=== PATIENT | female | born 2000 | race Caucasian/White ===

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

== ENCOUNTER 2021-03-09 22:38 | Observation (INO) | payer MEDICAID ==
[~2021-03-09] VITALS: Ht 152 cm; Wt 71.0 kg
[~2021-03-09 22:38] MED LIST: ONDA4TAB11 PO
--- NOTE | 2021-03-09 23:16 | ED GU-Female ---
General Chief Complaint: Female Reproductive Stated Complaint: APROX 16-17 W - VAGINAL BLEEDING Nursing Triage Note: vaginal bleeding x1 day. reports lower abdominal pain/pressure since 1900 today. Nursing Sepsis Screen: No Definite Risk Source: patient Exam Limitations: no limitations History of Present Illness Date Seen by Provider: March 09, 2021 Time Seen by Provider: 23:03 Initial Comments Patient is a 21-year-old female who presents to the emergency department today with a chief complaint of lower abdominal cramping and vaginal bleeding onset yesterday. Patient states the cramping started today. She is a G1, P0. First date of her last menstrual cycle was November 27 her estimated due date is September 05, 2021. Patient states that she is having lots of vaginal bleeding and cramping. She denies any burning with urination urgency or frequency. No abnormal vaginal discharge. No recent illnesses such as fever, chills, cough or congestion. Patient states that she had an ultrasound at [facility] on 02 March which showed a gestational sac but did not show evidence of a baby at that time. Patient has not taken any medications for the cramping. She states she called and spoke with a nurse through [facility] and they told her to come to the emergency department. All other review of systems reviewed and negative except as stated above. Timing/Duration: yesterday Severity/Quality: cramping Location: suprapubic Radiation: suprapubic Activities at Onset: none Prior Genitourinary Problems: none Associated Symptoms: denies symptoms Allergies and Home Medications Allergies Coded Allergies: No Known Drug Allergies (Unverified , 11/28/19) Patient Home Medication List Home Medication List Reviewed: Yes Review of Systems Review of Systems Constitutional: see HPI EENTM: no symptoms reported Respiratory: no symptoms reported Cardiovascular: no symptoms reported Gastrointestinal: abdominal pain Genitourinary: other (Vaginal bleeding) : Yes Expected Date of Delivery: Sep 05, 2021 LMP: Nov 27, 2020 Musculoskeletal: no symptoms reported Skin: no symptoms reported Psychiatric/Neurological: No Symptoms Reported All Other Systemes Reviewed Negative Unless Noted: Yes Past Fycjcfw-Aglaiq-Iofbfe Hx Patient Social History Alcohol Use: Denies Use Smoking Status: Never a Smoker 2nd Hand Smoke Exposure: No Recent Infectious Disease Expo: No Recent Hopitalizations: No Immunizations Up To Date Tetanus Booster (TDap): Unknown Seasonal Allergies Seasonal Allergies: No Past Medical History Surgeries: No Respiratory: No Cardiac: No Neurological: No : Yes Expected Date of Delivery: Sep 05, 2021 Last Menstrual Period: Nov 27, 2020 Genitourinary: No Gastrointestinal: No Musculoskeletal: No Endocrine: No HEENT: No Cancer: No Psychosocial: No Integumentary: No Blood Disorders: No Physical Exam Vital Signs Vital Signs - First Documented 03/09/21 22:52 Temp 36.0 Pulse 77 Resp 18 B/P (MAP) 108/67 (81) Pulse Ox 98 O2 Delivery Room Air Capillary Refill : Less Than 3 Seconds Height, Weight, BMI Height: '" Weight: lbs. oz. kg; 30.00 BMI Method: General Appearance: WD/WN, no apparent distress HEENT: PERRL/EOMI Cardiovascular: regular rate, rhythm Respiratory: lungs clear, normal breath sounds, no respiratory distress, no accessory muscle use Gastrointestinal: normal bowel sounds, non tender, soft Pelvic: vaginal bleeding (Copious amounts of vaginal bleeding. It feels like the cervix is almost at the introitus. When I go to palpate in the vaginal vault it feels like I am inside the cervix. Patient cannot tolerate the exam, she has exquisite pain with any type of manual examination.) Extremities: normal range of motion, non-tender, normal inspection Neurologic/Psychiatric: no motor/sensory deficits, alert, normal mood/affect, oriented x 3 Skin: normal color, warm/dry Progress/Results/Core Measures Suspected Sepsis Recent Fever Within 48 Hours: No Infection Criteria Present: None New/Unexplained Altered Menta: No Sepsis Screen: No Definite Risk SIRS Temperature: Pulse: 77 Respiratory Rate: 18 Laboratory Tests 03/09/21 23:20: White Blood Count 9.1 Blood Pressure 108 /67 Mean: 81 Laboratory Tests 03/09/21 23:20: Platelet Count 186 Results/Orders Lab Results Laboratory Tests Test 03/09/21 23:00 03/09/21 23:20 Range/Units Urine Color ORANGE Urine Clarity CLEAR Urine pH 5.5 5-9 Urine Specific Coats >=1.030 1.016-1.022 Urine Protein 1+ H NEGATIVE Urine Glucose (UA) NEGATIVE NEGATIVE Urine Ketones NEGATIVE NEGATIVE Urine Nitrite NEGATIVE NEGATIVE Urine Bilirubin NEGATIVE NEGATIVE Urine Urobilinogen 0.2 < = 1.0 MG/DL Urine Leukocyte Esterase NEGATIVE NEGATIVE Urine RBC (Auto) 3+ H NEGATIVE Urine RBC >100 H /HPF Urine WBC NONE /HPF Urine Squamous Epithelial Cells 2-5 /HPF Urine Crystals NONE /LPF Urine Bacteria NEGATIVE /HPF Urine Casts NONE /LPF Urine Mucus SMALL H /LPF Urine Culture Indicated NO White Blood Count 9.1 4.3-11.0 10^3/uL Red Blood Count 4.22 3.80-5.11 10^6/uL Hemoglobin 12.3 11.5-16.0 g/dL Hematocrit 39 35-52 % Mean Corpuscular Volume 93 80-99 fL Mean Corpuscular Hemoglobin 29 25-34 pg Mean Corpuscular Hemoglobin Concent 32 32-36 g/dL Red Cell Distribution Width 14.2 10.0-14.5 % Platelet Count 186 130-400 10^3/uL Mean Platelet Volume 11.6 9.0-12.2 fL Immature Granulocyte % (Auto) 0 % Neutrophils (%) (Auto) 64 42-75 % Lymphocytes (%) (Auto) 28 12-44 % Monocytes (%) (Auto) 6 0-12 % Eosinophils (%) (Auto) 2 0-10 % Basophils (%) (Auto) 0 0-10 % Neutrophils # (Auto) 5.8 1.8-7.8 10^3/uL Lymphocytes # (Auto) 2.6 1.0-4.0 10^3/uL Monocytes # (Auto) 0.5 0.0-1.0 10^3/uL Eosinophils # (Auto) 0.2 0.0-0.3 10^3/uL Basophils # (Auto) 0.0 0.0-0.1 10^3/uL Immature Granulocyte # (Auto) 0.0 0.0-0.1 10^3/uL Human Chorionic Gonadotropin, Quant 3013 H <5 MIU/ML My Orders Orders - NAEEM ROLON MD Cbc With Automated Diff (03/09/21 23:16) Abo Rh Type (03/09/21 23:16) Hcg,Quantitative (03/09/21 23:16) Ua Culture If Indicated (03/09/21 23:16) Us Ob Transvaginal [id number] (03/10/21 00:30) Ed Iv/Invasive Line Start (03/10/21 01:02) Fentanyl Inj (Sublimaze Injection) (03/10/21 01:15) Medications Given in ED Current Medications Medications Dose Ordered Sig/Cosme Route Start Time Stop Time Status Last Admin Dose Admin Fentanyl Citrate 50 mcg ONCE ONCE IVP 03/10/21 01:15 03/10/21 01:16 DC 03/10/21 01:11 50 MCG Vital Signs/I&O 03/09/21 22:52 Temp 36.0 Pulse 77 Resp 18 B/P (MAP) 108/67 (81) Pulse Ox 98 O2 Delivery Room Air Capillary Refill : Less Than 3 Seconds Blood Pressure Mean: 81 Progress Note : Time: 01:45 Progress Note Case discussed with Dr. Rodas. Recommends calling Dr. Cardenas, DATA CONVERSION OPERATOR on-call secondary to patient likely needing a D&C. Patient's ultrasound shows evidence of gestational sac involution down low in the cervix with copious amounts of bleeding. No evidence of pole. Patient's vital signs of been stable, hemoglobin is normal. Blood type is O+. [address] Cardenas who will come and evaluate the patient here in the ED 0307 Dr Cardenas in the ER to evaluate patient. removed products of conception. will admit for monitoring and repeat hemoglobin in a couple of hours. Departure Communication (Admissions) Time/Spoke to Admitting Phy: 02:[address] Cardenas Impression Primary Impression: Complete miscarriage Disposition: ADMITTED INPATIENT Condition: Stable Admissions Decision to Admit Reason: Admit from ER (General) Decision to Admit/Date: March 10, 2021 Time/Decision to Admit Time: 03:04 Departure-Patient Inst. Referrals: [facility] (PCP/Family) Primary Care Physician NAEEM ROLON MD March 09, 2021 23:16
[2021-03-09 23:35] LABS: BASOPHILS % (AUTO) 0 % (0-10); EOSINOPHILS # (AUTO) 0.2 10^3/uL (0.0-0.3); EOSINOPHILS % (AUTO) 2 % (0-10); HEMATOCRIT 39 % (35-52); HEMOGLOBIN 12.3 g/dL (11.5-16.0); LYMPHOCYTES # (AUTO) 2.6 10^3/uL (1.0-4.0); LYMPHOCYTES % (AUTO) 28 % (12-44); MEAN CORPUSCULAR HEMOGLOBIN 29 pg (25-34); MEAN CORPUSCULAR HGB CONC 32 g/dL (32-36); MEAN CORPUSCULAR VOLUME 93 fL (80-99); MEAN PLATELET VOLUME 11.6 fL (9.0-12.2); MONOCYTES # (AUTO) 0.5 10^3/uL (0.0-1.0); MONOCYTES % (AUTO) 6 % (0-12); NEUTROPHILS # (AUTO) 5.8 10^3/uL (1.8-7.8); NEUTROPHILS % (AUTO) 64 % (42-75); PLATELET COUNT 186 10^3/uL (130-400); WHITE BLOOD COUNT 9.1 10^3/uL (4.3-11.0)
[2021-03-09 23:37] LABS: BILIRUBIN,URINE NEGATIVE (NEGATIVE); CLARITY,URINE CLEAR; COLOR,URINE ORANGE; GLUCOSE, URINE (UA) NEGATIVE (NEGATIVE); KETONES,URINE NEGATIVE (NEGATIVE); LEUKOCYTE ESTERASE ,URINE NEGATIVE (NEGATIVE); NITRITE,URINE NEGATIVE (NEGATIVE); PH,URINE 5.5 (5-9); PROTEIN,URINE 1+ (NEGATIVE)
[2021-03-10 00:02] LABS: BACTERIA,URINE NEGATIVE /HPF; RBC,URINE >100 /HPF
[2021-03-10] MEDS ORDERED: fentaNYL INJ 100 MCG/2 ML AMP IVP ONE (01:15)
--- NOTE | 2021-03-10 03:18 | Consultation ---
History of Present Illness History of Present Illness Patient Consulted On(rod/time) 03/10/21 03:13 Date Seen by Provider: March 10, 2021 Time Seen by Provider: 02:45 Reason for Visit: Vaginal bleeding History of Present Illness This is a 21-year-old 1 para 0 female with last menstrual period approximately 14 weeks ago who presented to women services with complaint of vaginal bleeding. She states she began bleeding yesterday and began having heavier bleeding about 7 PM. And began having blood clots. She presented to the emergency room due to the excessive bleeding. The patient states that on March 02 she had an ultrasound at [facility] that showed "no baby inside". However she did not recall what the plan was for follow-up. Dr. Gusman examined the patient and one is unable to do a complete pelvic exam due to patient discomfort and anxiety. I was asked to come evaluate for a dilation and curettage. Her hCG level is 3300, and hemoglobin is 12. Her vital signs have been stable. An ultrasound was done revealing an empty gestational sac. On my review of the ultrasound there is a large amount of tissue in the vagina and no tissue noted. It does appear that miscarriage is noted on the ultrasound with tissues extending through the cervical os. The adnexa are not visualized based on this ultrasound. The patient states that she has not been sitting up or has not been standing recently. She is unsure if she has had dizziness. She states that the pain has been better recently. But she still reports cramping. Dr. Gusman states she gave her fentanyl IV for assistance in pain management. Allergies and Home Medications Allergies Coded Allergies: No Known Drug Allergies (Unverified , 11/28/19) Patient Home Medication List Home Medication List Reviewed: Yes Past Zdfovpb-Cpshgr-Vfsvkv Hx Patient Social History Alcohol Use: Denies Use Smoking Status: Never a Smoker 2nd Hand Smoke Exposure: No Recent Infectious Disease Expo: No Recent Hopitalizations: No Immunizations Up To Date Tetanus Booster (TDap): Unknown Seasonal Allergies Seasonal Allergies: No Past Medical History Surgeries: No Respiratory: No Cardiac: No Neurological: No : Yes Expected Date of Delivery: Sep 05, 2021 Last Menstrual Period: Nov 27, 2020 Genitourinary: No Gastrointestinal: No Musculoskeletal: No Endocrine: No HEENT: No Cancer: No Psychosocial: No Integumentary: No Blood Disorders: No Review of Systems-General Constitutional: no symptoms reported Respiratory: no symptoms reported Cardiovascular: no symptoms reported Genitourinary: pain (pain is central and low), other (bleeding, no tissue passed) Physical Exam-General Problems Physical Exam Vital Signs Vital Signs - First Documented 03/09/21 22:52 Temp 36.0 Pulse 77 Resp 18 B/P (MAP) 108/67 (81) Pulse Ox 98 O2 Delivery Room Air Capillary Refill : Less Than 3 Seconds General Appearance: moderate distress Genital/Rectal: other (There is blood on the perineum and running down the legs. I did a digital exam and there is a large amount of blood clot and tissue noted in the vaginal vault. The patient was not tolerating exam and was crawling up the bed. I was able to however get her to relax her abdominal wall and her levator muscles, and was able to insert a speculum. At that point I could see a gestational sac with a large amount of tissue coming from the cervix and mainly sitting in the vaginal vault. At that point I could not visualize the cervix. I was able to tease the tissue out of the vagina and then noted that the cervix was just slightly open. And there was no further bleeding or no tissue coming from the cervical os.) Assessment/Plan Assessment/Plan Admission Diagnosis/Plan 1. Completed miscarriage 2. Vaginal bleeding Plan: We will admit for observation due to continued discomfort. We will repeat the hemoglobin in the morning. She does appear stable though vital signs have not been repeated yet. We will determine the need for further surgical treatment. Though it is likely that this will not be needed. We will repeat the hemoglobin to determine if transfusion is necessary. Admission Status: Observation GOPI ORTIZ DO March 10, 2021 03:18
[2021-03-10] MEDS ORDERED: KETOROLAC 30 MG/ML VIAL IVP ONE (03:30)
[2021-03-10] MEDS ORDERED: ONDANSETRON 4 MG/2 ML (SDV) Z0FRAN IVP ONE (03:30)
[2021-03-10] MEDS ORDERED: fentaNYL INJ 100 MCG/2 ML AMP IVP PRN (03:30)
[2021-03-10] MEDS ORDERED: ONDANSETRON 4 MG/2 ML (SDV) Z0FRAN IVP PRN (03:30)
[2021-03-10] MEDS ORDERED: ACETAMINOPHEN 500 MG TAB (TYLENOL) PO PRN (03:30)
[2021-03-10] MEDS ORDERED: KETOROLAC 30 MG/ML VIAL IVP PRN (03:30)
[2021-03-10 03:45] VITALS: BP 106/54
[2021-03-10 06:16] LABS: HEMATOCRIT 35 % (35-52); HEMOGLOBIN 10.9 g/dL (11.5-16.0); MEAN CORPUSCULAR HEMOGLOBIN 29 pg (25-34); MEAN CORPUSCULAR HGB CONC 32 g/dL (32-36); MEAN CORPUSCULAR VOLUME 93 fL (80-99); PLATELET COUNT 162 10^3/uL (130-400); WHITE BLOOD COUNT 10.2 10^3/uL (4.3-11.0)
--- NOTE | 2021-03-10 06:46 | Diagnostic Imaging Report ---
INDICATION: Vaginal bleeding. Quantitative hCG greater than 2500. The gestational age based on the LMP would be 14 weeks 5 days. The patient reports having outside pelvic ultrasound on March 02 that reported no pole though gestational sac was demonstrated. Outside films not available for review. FINDINGS: Study is limited due to the heavy vaginal bleeding and pelvic pain. Uterus measures 10 x 4.3 x 5.6 cm. There is considerable thickening of the endometrium with some fluid present. There is no evidence of an intrauterine . No findings to indicate a gestational sac. The adnexa was not well evaluated due to limitations of the exam. No obvious free fluid demonstrated. IMPRESSION: 1. Very Limited exam due to pelvic pain. There is no evidence of intrauterine though there is considerable endometrial hypertrophy. 2. With patient's symptoms and quantitative hCG, ectopic would be the primary concern. Further clinical follow-up is needed. These findings are concordant with the preliminary report. Dictated by: Dictated on workstation # [id number]
[2021-03-10 07:30] VITALS: BP 103/51
[2021-03-10] MEDS ORDERED: ACET-93 PO (08:54)
[2021-03-10] MEDS ORDERED: IBUP-1773 PO (08:54)
--- NOTE | 2021-03-10 08:56 | Discharge Inst-Women's Service ---
Discharge Inst-Women's Serv Depart Medication/Instructions New, Converted or Re-Newed RX: Transmitted to Pharmacy Instructions expect light vaginal bleeding, cramping for a few more days Schedule follow up in [address] Rodas or Dr. Ortiz Would recommend an additional HCG drawn in 2 weeks Final Diagnosis complete miscarriage vaginal hemorrhage Problems Reviewed?: Yes Consults/Follow Up Additional Follow Up: Yes (1-[address] ortiz/Clark) Activity Activity: Activity as Tolerated Driving Instructions: No Driving for 24 Hours NO SMOKING: NO SMOKING Nothing Inside Vagina: No Douching, No [place] (2 weeks), No Tampons Diet Discharge Diet: No Restrictions Symptoms to Report to : Bleeding Excessive (> 1 pad per hour), Fever Over 101 Degrees F, Vaginal Bleeding Increase, Cramps in Feet or Legs, Vaginal Discharge Foul For Any Problems or Questions: Contact Your Physician GOPI ORTIZ DO March 10, 2021 08:56
[2021-03-10 10:30] VITALS: BP 103/51
--- NOTE | 2021-03-29 10:25 | Physician Query-Final Dx ---
KHANG CASAS 03/29/21 1025: Final Diagnosis Give Final Diagnosis Please give Final Diagnosis GOPI ORTIZ DO 04/01/21 1742: Final Diagnosis Give Final Diagnosis complete miscarriage KHANG CASAS Mar 29, 2021 10:25 GOPI ORTIZ DO Apr 01, 2021 17:42
== END 2021-03-10 08:52 | disposition home or self-care (01) ==
LOC: EDUNIT# 22:38 → ER 22:40 → WS 22:41 → UNDOADMIN 03-10 03:21 → UNDODISIN 03-10 11:00
PROVIDERS: ADMIT Obstetrics & Gynecology; ATTEND Obstetrics & Gynecology
DX: O03.9 Complete or unspecified spontaneous abortion without complication (principal)
CPT/HCPCS: 76817; 81000; 84702; 85025; 85027; 86900; 86901; 88305; 88342; 96374; 96375; 99284; G0378; 36415

== ENCOUNTER → 2021-03-23 | Outpatient (CLI) | payer MEDICAID ==
[~2021-03-23] MED LIST changes: +ACET-93 PO; +IBUP-1773 PO
== END ==
LOC: LAB 14:58
PROVIDERS: ATTEND Obstetrics & Gynecology
DX: O03.9 Complete or unspecified spontaneous abortion without complication (principal)
CPT/HCPCS: 36415; 84702

== ENCOUNTER 2021-11-05 02:55 | Emergency (ER) | payer MEDICAID ==
[2021-11-05] MEDS ORDERED: OSLT75C PO (04:53)
--- NOTE | 2021-11-05 04:53 | ED Cough/URI ---
General Chief Complaint: COVID19 Suspect/Confirmed Stated Complaint: FEVER,RUNNY NOSE,ACHES ALL OVER,4 MONTHS PREG Source: patient (VERY VAGUE AND DIFFICULT HISTORIAN) History of Present Illness Date Seen by Provider: Nov 05, 2021 Time Seen by Provider: 03:53 Initial Comments PT ARRIVES VIA POV FROM HOME STATES SHE STARTED GETTING SICK AROUND 1700 TONIGHT C/O RUNNY NOSE, CLEAR DRAINAGE C/O SLIGHT COUGH C/O EAR ACHE C/O BODY ACHES C/O FEVER OF 99 NO SHORTNESS OF BREATH NO LOSS OF TASTE OR SMELL NO GI SYMPTOMS NO HEADACHE IS NOT ILL., NO ONE ELSE LIVES IN THE HOME PT HAS NOT HAD COVID-19 OR FLU VACCINES. STATES SHE TOOK MOTRIN TONIGHT--HAS NOT TAKEN ANY TYLENOL PT STATES SHE IS 4 MONTHS WITH LMP OF 08/04/21 AND EDC 04/22/[address] FITCH FOR OB CARE. HAD ROUTINE VISIT A WEEK OR TWO AGO, NEXT VISIT IS IN NOVEMBER PT IS AB 0 NO CHRONIC ILLNESSES PCP; [facility] AMORTIZATION SCHEDULE CLERK: DR. FITCH Allergies and Home Medications Allergies Coded Allergies: No Known Drug Allergies (Unverified , 11/28/19) Patient Home Medication List Home Medication List Reviewed: Yes Acetaminophen (Acetaminophen) 500 Mg Tablet, 1,000 MG PO Q8H PRN for PAIN-MILD (1-4) Prescribed by: GOPI ORTIZ on 03/10/21 0854 Ibuprofen (Ibuprofen) 600 Mg Tablet, 600 MG PO Q6H Prescribed by: GOPI ORTIZ on 03/10/21 0854 Oseltamivir Phosphate (Tamiflu) 75 Mg Cap, 75 MG PO BID Prescribed by: GUY MARIE on 11/05/21 0453 Review of Systems Review of Systems Constitutional: see HPI, fever EENTM: see HPI, nose congestion Respiratory: see HPI, cough; No short of breath Cardiovascular: no symptoms reported Gastrointestinal: no symptoms reported Genitourinary: no symptoms reported : Yes Musculoskeletal: see HPI (BODY ACHES) Skin: no symptoms reported Psychiatric/Neurological: No Symptoms Reported Hematologic/Lymphatic: No Symptoms Reported Immunological/Allergic: no symptoms reported Past Pojphmf-Dxitmh-Uskgoe Hx Patient Social History Tobacco Use?: No Substance use?: No Alcohol Use?: No Immunizations Up To Date Tetanus Booster (TDap): Unknown Seasonal Allergies Seasonal Allergies: No Past Medical History Surgeries: No Respiratory: No Cardiac: No Neurological: No : Yes Expected Date of Delivery: Apr 22, 2022 Reproductive Disorders: No Genitourinary: No Gastrointestinal: No Musculoskeletal: No Endocrine: No HEENT: No Cancer: No Psychosocial: No Integumentary: No Blood Disorders: No Physical Exam Vital Signs - First Documented 11/05/21 03:50 Temp 37.3 Pulse 111 Resp 18 B/P (MAP) 129/65 (86) Pulse Ox 98 O2 Delivery Room Air Capillary Refill : Height: '" Weight: lbs. oz. kg; 30.73 BMI Method: General Appearance: WD/WN, no apparent distress, other (DOES NOT APPEAR ILL OR TO BE IN ANY DISCOMFORT OR DISTRESS) HEENT: PERRL/EOMI, normal ENT inspection, TMs normal, pharynx normal Neck: normal inspection Respiratory: normal breath sounds, no respiratory distress, no accessory muscle use Cardiovascular: normal peripheral pulses, regular rate, rhythm, no edema, no JVD, no murmur Gastrointestinal: non tender, soft Extremities: normal inspection, no pedal edema, no calf tenderness, normal capillary refill Neurologic/Psychiatric: no motor/sensory deficits, alert, normal mood/affect Skin: normal color, warm/dry Progress/Results/Core Measures Suspected Sepsis SIRS Temperature: Pulse: Respiratory Rate: Blood Pressure / Mean: Results/Orders Lab Results Laboratory Tests Test 11/05/21 03:55 Range/Units Influenza Type A (RT-PCR) Detected H Not Detecte Influenza Type B (RT-PCR) Not Detected Not Detecte SARS-CoV-2 RNA (RT-PCR) Not Detected Not Detecte Group A Streptococcus Screen NEGATIVE NEGATIVE My Orders Orders - GUY MARIE DO Covid 19 Inhouse Test (11/05/21 03:54) Influenza A And B By Pcr (11/05/21 03:54) Isolation Central Supply Req (11/05/21 03:54) Heart Tones (11/05/21 03:54) Rapid Strep A Screen (11/05/21 03:56) Oseltamivir 75 Mg Capsule (Tamiflu 75 (11/05/21 05:00) Vital Signs/I&O 11/05/21 11/05/21 03:50 04:59 Temp 37.3 37.3 Pulse 111 123 Resp 18 16 B/P (MAP) 129/65 (86) 115/60 Pulse Ox 98 99 O2 Delivery Room Air Room Air Capillary Refill : Progress Note : Progress Note FHR 164 PPE WORN AT ALL TIMES COVID AND FLU TESTING DONE NO SYMPTOMS OF ANY KIND DURING ER STAY NO COUGH NO DYSPNEA NO HYPOXIA NO FEVER ANTICIPATED COURSE DISCUSSED, ALONG WITH STRICT RETURN PRECAUTIONS ALSO ADVISED THAT SHE CONTACT HER OB AND INFORM HIM OF TODAY'S TEST RESULTS Departure Impression Primary Impression: Influenza A Additional Impression: SECOND TREMESTER Disposition: HOME, SELF-CARE Condition: Stable Departure-Patient Inst. Decision time for Depature: 04:50 Referrals: [facility] (PCP/Family) Primary Care Physician Patient Instructions: Flu, Adult (DC), and the Flu Add. Discharge Instructions: LOTS OF CLEAR LIQUIDS TYLENOL NEEDED FOR PAIN OR FEVER OVER 101 DO NOT TAKE MOTRIN / IBUPROFEN / ADVIL OR ALEVE / NAPROXEN WHILE QUARANTINE FOR THE NEXT 7 DAYS FOLLOW UP WITH YOUR DR NEEDED, RETURN TO ER IF WORSE All discharge instructions reviewed with patient and/or family. Voiced understanding. Scripts Oseltamivir Phosphate (Tamiflu) 75 Mg Cap 75 MG PO BID for 5 Days, #10 CAP Prov: GUY MARIE DO 11/05/21 GUY MARIE DO Nov 05, 2021 04:53
[2021-11-05 04:59] VITALS: BP 115/60
[2021-11-05] MEDS ORDERED: OSELTAMIVIR 75 MG (TAMIFLU) CAPSULE PO ONE (05:00)
== END 2021-11-05 05:00 | disposition home or self-care (01) ==
LOC: EDUNIT# 02:55 → ER 02:59
DX: O98.512 Other viral diseases complicating pregnancy, second trimester (principal); J10.1 Influenza due to other identified influenza virus with other respiratory manifestations; Z20.822 Contact with and (suspected) exposure to COVID-19; Z3A.00 Weeks of gestation of pregnancy not specified
CPT/HCPCS: 87430; 87636

== ENCOUNTER → 2021-12-06 | Outpatient (CLI) | payer MEDICAID ==
[~2021-12-06] MED LIST changes: +OSLT75C PO
--- NOTE | 2021-12-06 16:53 | Diagnostic Imaging Report ---
EXAM: OB ULTRASOUND COMPLETE DATE: December 06, 2021. COMPARISON: March 10, 2021. INDICATION: 21-year-old female, supervision of otherwise normal . FINDINGS: Multiple grayscale sonographic images were obtained of the gravid uterus. OVERVIEW: Within the uterus, there is a single living gestation in breech position. There is positive movement and heart motion. heart rate was identified at 150 beats per minute. The amnionic fluid volume is subjectively normal. The placenta is anterior and without previa. The cervical length is 3.1 cm. growth parameters are summarized in detail on the accompanying separate chart. The approximate mean gestational age by today's ultrasound measurements is 20 weeks 1 days +/- 1 week variability. Estimated weight based on today's measurements is 342 g. anatomic survey: There is no ventriculomegaly (the lateral ventricle measures 6 mm) the cerebellum, cavum septum pellucidum, falx, and cisterna magna are identified. Longitudinal and transverse images of the spine appear unremarkable. There is visualization of the stomach, kidneys and urinary bladder. The cardiac apex and stomach are on the same side of midline. There is a limited four-chamber view of the heart. There is a three-vessel cord with an unremarkable insertion into the abdominal wall. 4 extremities are seen. The upper lip is not well seen. IMPRESSION: 1. Single living intrauterine with approximate mean gestational age of 20 weeks 1 days +/- 1 week. 2. No demonstrated abnormality. There is a limited four-chamber view of the heart. Biometrical measurements are as follows: Biparietal 4.64 cm, age 20 weeks 1 days. Head circumference 16.98 cm, age 19 weeks 5 days. Abdominal circumference 15.84 cm, age 21 weeks 0 days. Femur length 3.09 cm, age 19 weeks 5 days. Sonographic estimate age: 20 weeks 1 days. Sonographic estimated date of delivery: 04/24/2022. Estimated Weight: 342 gm (+/- 50 gm). LMP percentile: 35%. heart rate: 150 beats per minute. number: 1 of 1. Dictated by: Dictated on workstation # [id number]
== END ==
LOC: RAD 12:00
PROVIDERS: ATTEND Nurse Practitioner Women's Health
DX: Z34.02 Encounter for supervision of normal first pregnancy, second trimester (principal)
CPT/HCPCS: 76805

== ENCOUNTER 2021-12-20 13:06 | Outpatient (CLI) | payer MEDICAID ==
[~2021-12-20] VITALS: Ht 152.4 cm; Wt 70.4 kg
[2021-12-20 13:00] VITALS: BP 129/72
[2021-12-20 13:37] LABS: BILIRUBIN,URINE NEGATIVE (NEGATIVE); CLARITY,URINE CLEAR; COLOR,URINE YELLOW; GLUCOSE, URINE (UA) NEGATIVE (NEGATIVE); KETONES,URINE NEGATIVE (NEGATIVE); LEUKOCYTE ESTERASE ,URINE NEGATIVE (NEGATIVE); NITRITE,URINE NEGATIVE (NEGATIVE); PROTEIN,URINE NEGATIVE (NEGATIVE)
[2021-12-20 13:45] LABS: BACTERIA,URINE MODERATE /HPF; RBC,URINE RARE /HPF; WBC,URINE 0-2 /HPF
[2021-12-20] MEDS ORDERED: PREN1TAB79 PO (14:07)
--- NOTE | 2021-12-21 08:50 | Physician Query-Final Dx ---
KAIDEN,12/21/21 0849: Clinic Account Progress/Dx Physician Query: Please give diagnosis Please include # weeks gestation Date of Service Dec 20, 2021 at 13:06 ANAM FITCH DO 12/21/21 1050: Clinic Account Progress/Dx DIAGNOSIS: Diagnosis 22 week IUP Lower abdominal discomfort KAIDEN,OctDec 21, 2021 08:49 ANAM FITCH DO Dec 21, 2021 10:50
== END 2021-12-20 14:26 | disposition home or self-care (01) ==
LOC: WSo 13:06 → LDRP 13:06 → WSo 14:26
PROVIDERS: ATTEND Obstetrics & Gynecology
DX: O26.892 Other specified pregnancy related conditions, second trimester (principal); R10.9 Unspecified abdominal pain; Z3A.22 22 weeks gestation of pregnancy
CPT/HCPCS: 81000; 87088; G0463; 99213

== ENCOUNTER → 2022-01-25 | Outpatient (CLI) | payer MEDICAID ==
[~2022-01-25] MED LIST changes: +PREN1TAB79 PO
--- NOTE | 2022-01-25 11:04 | Diagnostic Imaging Report ---
INDICATION: Supervision of normal . Evaluate growth. TECHNIQUE: Multiple real-time grayscale images were obtained over the gravid uterus. COMPARISON: 12/06/2021. FINDINGS: A single live intrauterine gestation is visualized in cephalic presentation. heart tones measure 134 BPM. PARTHA measures 14.6 cm. The placenta is anterior/fundal and has a normal appearance. No evidence of previa. The cervical length measures 3.7 cm. The profile is visualized and has a normal appearance. Four-chamber heart is identified without abnormality. Biometrical measurements are as follows: Biparietal 7.03 cm, age 28 weeks 2 days. Head circumference 25.67 cm, age 28 weeks 0 days. Abdominal circumference 24.50 cm, age 28 weeks 6 days. Femur length 5.41 cm, age 28 weeks 5 days. Sonographic estimate age: 28 weeks 4 days. Sonographic estimated date of delivery: 04/15/2022. Estimated Weight: 1252 gm (+/- 183 gm). LMP percentile: 78%. heart rate: 134 beats per minute. number: 1 of 1. The bilateral adnexa are unremarkable. IMPRESSION: 1. Single live intrauterine gestation measuring 28 weeks 4 days with an estimated due date of 04/15/2022. These are within range with the clinical dates. Recommend continued surveillance as indicated. 2. There is improved visualization of the profile and four-chamber heart on today's exam. No anatomic abnormalities are identified. Dictated by: Dictated on workstation # [id number]
== END ==
LOC: RAD 10:00
PROVIDERS: ATTEND Obstetrics & Gynecology
DX: Z36.9 Encounter for antenatal screening, unspecified (principal); Z3A.28 28 weeks gestation of pregnancy
CPT/HCPCS: 76805

== ENCOUNTER 2022-03-05 22:25 | Outpatient (CLI) | payer MEDICAID ==
[~2022-03-05] VITALS: Ht 152.4 cm; Wt 80.0 kg
[2022-03-05 22:52] VITALS: BP 142/69
[2022-03-05 22:54] VITALS: BP 142/69
[2022-03-05 22:57] LABS: BILIRUBIN,URINE NEGATIVE (NEGATIVE); CLARITY,URINE CLEAR; COLOR,URINE YELLOW; GLUCOSE, URINE (UA) NEGATIVE (NEGATIVE); KETONES,URINE NEGATIVE (NEGATIVE); LEUKOCYTE ESTERASE ,URINE NEGATIVE (NEGATIVE); NITRITE,URINE NEGATIVE (NEGATIVE); PH,URINE 7.5 (5-9); PROTEIN,URINE NEGATIVE (NEGATIVE)
[2022-03-05 23:06] LABS: BACTERIA,URINE MODERATE /HPF; RBC,URINE 0-2 /HPF; WBC,URINE 0-2 /HPF
[2022-03-05 23:07] VITALS: BP 125/68
[2022-03-05 23:15] VITALS: BP 125/68
[2022-03-05 23:30] VITALS: BP 125/68
--- NOTE | 2022-03-07 08:17 | Physician Query-Final Dx ---
KAIDEN03/07/22 0817: Clinic Account Progress/Dx Physician Query: Please give diagnosis Please include # weeks gestation Date of Service March 05, 2022 at 22:25 ANAM FITCH DO 03/07/22 0903: Clinic Account Progress/Dx DIAGNOSIS: Diagnosis 33 week IUP Pelvic pains KAIDEN,OctMarch 07, 2022 08:17 ANAM IFTCH DO March 07, 2022 09:03
== END 2022-03-05 23:30 | disposition home or self-care (01) ==
LOC: LDRP 22:25 → WSo 22:25
PROVIDERS: ATTEND Obstetrics & Gynecology
DX: O26.893 Other specified pregnancy related conditions, third trimester (principal); R10.2 Pelvic and perineal pain; Z3A.33 33 weeks gestation of pregnancy
CPT/HCPCS: 81000; 87088; 99213

== ENCOUNTER → 2022-04-05 | Outpatient (CLI) | payer MEDICAID ==
[~2022-04-05] MED LIST changes: +ACHD5005 PO; +BENZ78AE5 TP; +DIBU30OI TOP; +DOCU100C37 PO; +FERR325T24 PO; +IBUP-844 PO; +PNV1TABL67 PO
== END ==
LOC: LABNPT 11:25
PROVIDERS: ATTEND Nurse Practitioner Women's Health
DX: O14.03 Mild to moderate pre-eclampsia, third trimester (principal); Z3A.00 Weeks of gestation of pregnancy not specified
CPT/HCPCS: 82570; 84156

== ENCOUNTER 2022-04-17 03:26 | Inpatient (IN) | payer MEDICAID ==
[2022-04-17] VITALS (31 sets, daily range): BP systolic 71–161; BP diastolic 32–95
[~2022-04-17] VITALS: Ht 152 cm; Wt 86.0 kg
[~2022-04-17 03:26] MED LIST changes: -ACHD5005 PO; -BENZ78AE5 TP; -DIBU30OI TOP; -DOCU100C37 PO; -FERR325T24 PO; -IBUP-844 PO; -PNV1TABL67 PO
[2022-04-17] MEDS ORDERED: D5 LR IV SOLUTION 1,000 ML IV ONE (04:06)
[2022-04-17] MEDS ORDERED: HYDROmorphone 2 MG/ML VIAL (DILAUDID) ONE (04:13)
[2022-04-17 04:14] LABS: BASOPHILS % (AUTO) 0 % (0-10); EOSINOPHILS % (AUTO) 0 % (0-10); HEMATOCRIT 34 % (35-52); LYMPHOCYTES # (AUTO) 2.1 10^3/uL (1.0-4.0); LYMPHOCYTES % (AUTO) 26 % (12-44); MEAN CORPUSCULAR HEMOGLOBIN 29 pg (25-34); MEAN CORPUSCULAR HGB CONC 33 g/dL (32-36); MEAN CORPUSCULAR VOLUME 88 fL (80-99); MEAN PLATELET VOLUME 12.6 fL (9.0-12.2); MONOCYTES # (AUTO) 0.8 10^3/uL (0.0-1.0); MONOCYTES % (AUTO) 10 % (0-12); NEUTROPHILS # (AUTO) 5.1 10^3/uL (1.8-7.8); NEUTROPHILS % (AUTO) 62 % (42-75); PLATELET COUNT 201 10^3/uL (130-400); WHITE BLOOD COUNT 8.1 10^3/uL (4.3-11.0)
[2022-04-17] MEDS ORDERED: HYDROmorphone 2 MG/ML VIAL (DILAUDID) IV ONE ×2 (04:15→07:30)
[2022-04-17] MEDS ORDERED: D5 LR IV SOLUTION 1,000 ML IV SCH ×2 (04:15→10:45)
[2022-04-17] MEDS ORDERED: LIDOCAINE/EPI 2% 1:200,00 (XYLOCAINE) 10 ML VIAL INJ PRN (04:15)
[2022-04-17] MEDS ORDERED: MINERAL OIL 30 ML TOP PRN (04:15)
[2022-04-17] MEDS ORDERED: OXYTOCIN PRE-MIX DRIP 500 ML IV ONE (06:10)
[2022-04-17] MEDS ORDERED: ONDANSETRON 4 MG/2 ML (SDV) Z0FRAN IVP ONE (07:30)
[2022-04-17] MEDS: CATHETER FLUSH 10 ML SYR IV SCH ×4 (08:32→23:57)
[2022-04-17] MEDS ORDERED: BUPIVACAINE 0.25% 30 ML (SENSORCAINE) VIAL INJ ONE (09:45)
[2022-04-17] MEDS: OXYTOCIN PRE-MIX DRIP 500 ML IV SCH ×4 (10:30→22:44)
[2022-04-17] MEDS ORDERED: WITCH HAZEL(TUCKS) 40 EA JAR TOP PRN (10:45)
[2022-04-17] MEDS ORDERED: DIBUCAINE 1% OINTMENT 30 GM TUBE TOP PRN (10:45)
[2022-04-17] MEDS ORDERED: TETANUS,DIPTH,PERTUSS P/F (BOOSTRIX) 0.5 ML VIAL IM ONE (10:45)
[2022-04-17] MEDS ORDERED: MEASLES,MUMPS,RUBELLA 1 EA INJ SQ ONE (10:45)
[2022-04-17] MEDS ORDERED: NALOXONE 0.4 MG/ML 1 ML (NARCAN) VIAL IV PRN (10:45)
[2022-04-17] MEDS ORDERED: BENZOCAINE/MENTHOL (DERMOPLAST) 56 ML CAN TP PRN (10:45)
--- NOTE | 2022-04-17 10:45 | OB Labor & Delivery Record ---
L&D History Date of Service Date of Service: Apr 17, 2022 History Expected Date of Delivery: Apr 22, 2022 Gestational Age in Weeks: 39 Hx : 1 Hx Para: 0 Complications Events: Routine care Operative Indications (Cesarea: N/A-Vaginal Delivery Intrapartal Events: None L&D Stage1 Stage One Onset of Labor - Date: Apr 17, 2022 Monitors and Tracing Monitor Mode: External Heart Rate: 125 Monitor Accelerations: Uniform Monitor Decelerations: Variable Station: -1 Retirement Variability: Average (6-10) Short Term Variability: Present Presentation: Vertex Vital Signs VS - Last 72 Hours, by Label 04/17/22 04/17/22 04/17/22 04/17/22 03:45 04:01 04:10 04:23 Temp 36.5 Pulse 88 86 85 93 Resp 18 18 18 18 B/P (MAP) 154/89 (110) 141/81 (101) 148/83 (104) Pulse Ox 99 99 98 97 O2 Delivery Room Air 04/17/22 04/17/22 04/17/22 04/17/22 04:54 05:25 05:55 06:26 Temp 36.9 Pulse 87 80 79 74 Resp 18 18 18 18 B/P (MAP) 139/77 (97) 148/88 (108) 160/90 (113) 140/91 (107) Pulse Ox 97 98 98 98 04/17/22 04/17/22 04/17/22 04/17/22 07:15 07:30 07:45 08:00 Temp 37.0 Pulse 89 82 85 Resp 18 18 18 B/P (MAP) 145/85 (105) Pulse Ox 98 98 O2 Delivery Room Air Room Air Room Air 04/17/22 08:15 Pulse 91 Resp 18 B/P (MAP) Pulse Ox 98 O2 Delivery Room Air Rupture of Membranes Spontaneous Ruture of Membrane: Yes Amniotic Membrane Rupture Time: 0200 Amniotic Membrane Fluid Desc.: Clear Vaginal Bleeding Description: Normal Show Progress/Notes Patient admitted after SROM and active labor. GBS neg. No augmentation used as the patient progressed to complete and + 1 station after 2 doses of dilaudid iv given 3 hrs apart. L&D Stage2 Monitors and Tracing Monitor Mode: External Heart Rate: 125 Monitor Accelerations: Uniform Monitor Decelerations: Variable Retirement Variability: Average (6-10) Position: Right Occiput Anterior Presentation: Vertex Cord Descript/Complications Cord Vessel Description: 3 Vessels Complications puendal block performed during 2nd stage due to uncontrolled pain using 10 ml of %25 marcaine in each side. Delivery Type Delivery Method: Spontaneous Vaginal Episiotomy/Perineal Laceration Episiotomy Description: Perineal Extension/lac, 2nd degree Degree (describe repair) 2nd degree perineal laceration repaired using 3-0 and 2-0 vicryl in usual fashion Condition of Infant Delivery 1 minute Comment: 8 5 minute Comment: 9 Notes live male weight pending Condition of Condition of : Living Exam: No Observed Abnormalities Resuscitation Resuscitation: N/A - Spontaneous Resp L&D Stage3 Stage Three Stage III Date: Apr 17, 2022 Pictocin Pitocin Administration Comment: 30 mu wide open after delivery of placenta Placenta Delivery Placenta Delivery: Spontaneous Delivery Summary Summary Estimated blood loss (mL): 400 Attending at delivery: Anam Fitch DO Condition of Delivery Examined: Cervix Examined, Uterus Explored Post Hemorrhage: No Condition of Mother stable Condition of (s) stable ANAM FITCH DO Apr 17, 2022 10:45
--- NOTE | 2022-04-17 10:46 | History & Physical-OB ---
OB - Chief Complaint & HPI Date/Time Date of Admission: Date of Admission: Apr 17, 2022 at 04:02 Date seen by a Provider: Apr 17, 2022 Time Seen by a Provider: 08:45 Chief Complaint/History OB-Reason for Admission/Chief: Onset of Labor Hx : 1 Hx Para: 0 Expected Date of Delivery: Apr 22, 2022 Gestational Age in Weeks: 39 Gestational Age in Days: 2 Admission Nurse Assessment Rev: Yes Allergies and Home Medications Allergies Coded Allergies: No Known Drug Allergies (Unverified , 11/28/19) Patient Home Medication List Home Medication List Reviewed: Yes Acetaminophen (Acetaminophen) 500 Mg Tablet, 1,000 MG PO Q8H PRN for PAIN-MILD (1-4) Prescribed by: GOPI ORTIZ on 03/10/21 0854 Vit W-Ca,Fe,FA(<1 mg) ( Vitamins) 1 Each Tablet, 1 EACH PO DAILY, (Reported) Entered as Reported by: LEMUEL LOVING on 12/20/21 1407 OB - History Hx of Present Care: Yes Ultrasounds: Normal mid trimester US Obstetrical Complications: None Medical Complications: None Obstetrical History Hx : 1 Hx Para: 0 Patient Past Medical History na Social History/Family History 2nd Hand Smoke Exposure: No Immunizations Influenza Vaccine Up-to-Date: No; Not Current Hepatitis A: Yes Hepatitis B: Yes Tetanus Booster (TDap): Unknown OB - Admission Exam Physical Exam Vitals: Vital Signs 04/17/22 04/17/22 04/17/22 07:30 07:45 08:15 Temp 37.0 Pulse 91 Resp 18 B/P (MAP) 145/85 (105) Pulse Ox 98 O2 Delivery Room Air HEENT: NCAT Heart: Rhythm Normal Lungs: Clear, Wheezes Extremities: Normal Reflexes: Normal Cervical Dilatation: 5cm Effacement: 75% Station: -1 Membranes: Ruptured Amniotic Fluid: Clear Heart Rate: 130's Accelerations: Accelerations Present Decelerations: No Decelerations Short Term Variability: Present Correction Variability: Average (6-25) Contractions on Admission: < 5 Minutes Apart Intensity: Firm Labs Laboratory Tests Test 04/17/22 03:39 04/17/22 03:55 Range/Units Membranes Rupture POSITIVE White Blood Count 8.1 4.3-11.0 10^3/uL Red Blood Count 3.83 3.80-5.11 10^6/uL Hemoglobin 11.0 L 11.5-16.0 g/dL Hematocrit 34 L 35-52 % Mean Corpuscular Volume 88 80-99 fL Mean Corpuscular Hemoglobin 29 25-34 pg Mean Corpuscular Hemoglobin Concent 33 32-36 g/dL Red Cell Distribution Width 15.0 H 10.0-14.5 % Platelet Count 201 130-400 10^3/uL Mean Platelet Volume 12.6 H 9.0-12.2 fL Immature Granulocyte % (Auto) 1 % Neutrophils (%) (Auto) 62 42-75 % Lymphocytes (%) (Auto) 26 12-44 % Monocytes (%) (Auto) 10 0-12 % Eosinophils (%) (Auto) 0 0-10 % Basophils (%) (Auto) 0 0-10 % Neutrophils # (Auto) 5.1 1.8-7.8 10^3/uL Lymphocytes # (Auto) 2.1 1.0-4.0 10^3/uL Monocytes # (Auto) 0.8 0.0-1.0 10^3/uL Eosinophils # (Auto) 0.0 0.0-0.3 10^3/uL Basophils # (Auto) 0.0 0.0-0.1 10^3/uL Immature Granulocyte # (Auto) 0.1 0.0-0.1 10^3/uL OB - Assessment/Plan/Diagnosis Assessment Assessment: active labor Admission Dx 22 yo G1P 0 @ 39 weeks Active labor GBS neg Admission Status: Inpatient Order (span 2 midnights) Reason for Inpatient Admission: Active labor at 39 weeks Plan Plan: Expectant Management ANAM FITCH DO Apr 17, 2022 10:46
[2022-04-17] MEDS: HYDROcodone/APAP 5 MG/325 MG (LORTAB) TAB PO PRN ×2 (11:02→16:05)
[2022-04-17] MEDS: IBUPROFEN 600 MG (MOTRIN) TAB PO SCH ×2 (12:07→17:38)
[2022-04-17] MEDS ORDERED: METHYLERGONOVINE 0.2 MG/ML (METHERGINE) AMP ONE (15:26)
[2022-04-17] MEDS ORDERED: METHYLERGONOVINE 0.2 MG/ML (METHERGINE) AMP IM ONE ×2 (15:30→16:30)
[2022-04-17 16:01] LABS: BASOPHILS % (AUTO) 0 % (0-10); EOSINOPHILS % (AUTO) 0 % (0-10); HEMATOCRIT 24 % (35-52); HEMOGLOBIN 7.9 g/dL (11.5-16.0); LYMPHOCYTES # (AUTO) 1.7 10^3/uL (1.0-4.0); LYMPHOCYTES % (AUTO) 12 % (12-44); MEAN CORPUSCULAR HEMOGLOBIN 29 pg (25-34); MEAN CORPUSCULAR HGB CONC 32 g/dL (32-36); MEAN CORPUSCULAR VOLUME 89 fL (80-99); MEAN PLATELET VOLUME 12.4 fL (9.0-12.2); MONOCYTES # (AUTO) 1.2 10^3/uL (0.0-1.0); MONOCYTES % (AUTO) 8 % (0-12); NEUTROPHILS # (AUTO) 11.3 10^3/uL (1.8-7.8); NEUTROPHILS % (AUTO) 79 % (42-75); PLATELET COUNT 180 10^3/uL (130-400); WHITE BLOOD COUNT 14.3 10^3/uL (4.3-11.0)
[2022-04-17 16:09] LABS: LYMPHOCYTES % (MANUAL) 14 %; MONOCYTES % (MANUAL) 12 %; NEUTROPHILS % (MANUAL) 74 %; POLYCHROMASIA SLIGHT
[2022-04-17] MEDS ORDERED: LACTATED RINGERS 1,000 ML IV ONE (16:45)
[2022-04-17] MEDS: DOCUSATE SODIUM 100 MG (COLACE) CAP PO SCH (20:21)
[2022-04-18 00:31] VITALS: BP 138/67
[2022-04-18] MEDS: IBUPROFEN 600 MG (MOTRIN) TAB PO SCH ×3 (00:31→12:15)
[2022-04-18] MEDS: HYDROcodone/APAP 5 MG/325 MG (LORTAB) TAB PO PRN ×2 (00:37→08:57)
[2022-04-18 04:31] VITALS: BP 117/55
[2022-04-18] MEDS: OXYTOCIN PRE-MIX DRIP 500 ML IV SCH (04:31)
[2022-04-18 06:50] LABS: BASOPHILS % (AUTO) 0 % (0-10); EOSINOPHILS # (AUTO) 0.1 10^3/uL (0.0-0.3); EOSINOPHILS % (AUTO) 0 % (0-10); HEMATOCRIT 22 % (35-52); LYMPHOCYTES # (AUTO) 2.1 10^3/uL (1.0-4.0); LYMPHOCYTES % (AUTO) 18 % (12-44); MEAN CORPUSCULAR HEMOGLOBIN 29 pg (25-34); MEAN CORPUSCULAR HGB CONC 31 g/dL (32-36); MEAN CORPUSCULAR VOLUME 93 fL (80-99); MEAN PLATELET VOLUME 12.5 fL (9.0-12.2); MONOCYTES # (AUTO) 0.9 10^3/uL (0.0-1.0); MONOCYTES % (AUTO) 8 % (0-12); NEUTROPHILS # (AUTO) 8.5 10^3/uL (1.8-7.8); NEUTROPHILS % (AUTO) 73 % (42-75); PLATELET COUNT 156 10^3/uL (130-400); WHITE BLOOD COUNT 11.7 10^3/uL (4.3-11.0)
[2022-04-18] MEDS ORDERED: PRENATAL VITAMIN 1 EA TAB PO SCH (07:00)
[2022-04-18 07:06] LABS: HEMOGLOBIN 6.8 g/dL (11.5-16.0)
--- NOTE | 2022-04-18 07:22 | Postpartum Progress Note ---
Note Note Day # 1 Subjective: Patient is without complaints. Had a significant PP hemorrhage received 2 dose IM methergine with subsided the bleeding. Ambulating, voiding. Tolerating a regular diet without nausea or vomiting. Normal lochia. Pain is well controlled with oral pain medications. Objective: Physical Exam: General - Alert and oriented, no apparent distress Abdomen - Soft, appropriately tender to palpation, non-distended, fundus firm at umbilicus Extremities - no edema, negative Amna's bilaterally Assessment: PPD 1 NVD Acute blood loss anemia Plan: Routine care. Encourage breast feeding. Encourage ambulation. Ferrous sulfate supplementation. Plan for discharge tomorrow Vitals - Labs Vital Signs - I&O Vital Signs Date Time Temp Pulse Resp B/P (MAP) Pulse Ox O2 Delivery O2 Flow Rate FiO2 04/18/22 04:31 36.1 96 18 117/55 (75) 98 Room Air 04/18/22 00:31 36.0 95 18 138/67 (90) 99 Room Air 04/17/22 20:21 36.0 95 18 121/57 (78) 99 Room Air 04/17/22 18:40 89 114/58 (76) Room Air 04/17/22 17:35 79 119/66 (83) Room Air 04/17/22 16:40 81 18 115/59 (77) 98 Room Air 04/17/22 15:55 75 16 127/69 (88) 100 Non Rebreather 15.00 04/17/22 15:39 71 18 97/55 (69) 100 Non Rebreather 15.00 04/17/22 15:33 68 18 71/44 (53) 100 Non Rebreather 15.00 04/17/22 15:07 68 18 108/50 (69) 100 Non Rebreather 15.00 04/17/22 15:02 68 18 97/53 (68) 100 Non Rebreather 15.00 04/17/22 14:51 36.8 62 18 71/32 (45) 99 Room Air 04/17/22 11:58 92 18 127/61 (83) Room Air 04/17/22 11:43 83 18 136/66 (89) Room Air 04/17/22 11:28 88 18 141/67 (91) Room Air 04/17/22 11:13 88 18 133/67 (89) Room Air 04/17/22 10:58 37.4 100 18 136/70 (92) Room Air 04/17/22 10:43 109 18 137/71 (93) Room Air 04/17/22 10:28 37.0 115 18 144/73 (96) Room Air 04/17/22 10:24 117 18 154/89 (110) Room Air 04/17/22 10:14 Room Air 04/17/22 10:00 94 143/70 (94) Room Air 04/17/22 09:45 Room Air 04/17/22 09:30 92 18 155/68 (97) Room Air 04/17/22 09:15 Room Air 04/17/22 09:00 106 18 140/84 (102) 100 Room Air 04/17/22 08:45 98 18 95 Room Air 04/17/22 08:30 88 18 142/71 (94) 98 Room Air 04/17/22 08:15 91 18 98 Room Air 04/17/22 08:00 85 18 98 Room Air 04/17/22 07:45 82 18 145/85 (105) Room Air 04/17/22 07:30 37.0 I & O 04/18/22 07:00 Intake Total 2800 ml Balance 2800 ml Labs Laboratory Tests 04/17/22 15:55: White Blood Count 14.3H, Red Blood Count 2.74L, Hemoglobin 7.9#L, Hematocrit 24L , Mean Corpuscular Volume 89, Mean Corpuscular Hemoglobin 29, Mean Corpuscular Hemoglobin Concent 32, Red Cell Distribution Width 14.9H, Platelet Count 180, Mean Platelet Volume 12.4H, Immature Granulocyte % (Auto) 1, Neutrophils (%) (Auto) 79H, Lymphocytes (%) (Auto) 12, Monocytes (%) (Auto) 8, Eosinophils (%) (Auto) 0, Basophils (%) (Auto) 0, Neutrophils # (Auto) 11.3H, Lymphocytes # (Auto) 1.7, Monocytes # (Auto) 1.2H, Eosinophils # (Auto) 0.0, Basophils # (Auto) 0.0, Immature Granulocyte # (Auto) 0.1, Neutrophils % (Manual) 74, Lymphocytes % (Manual) 14, Monocytes % (Manual) 12, Polychromasia SLIGHT 04/18/22 06:37: White Blood Count 11.7H, Red Blood Count 2.36L, Hemoglobin 6.8*L, Hematocrit 22L , Mean Corpuscular Volume 93, Mean Corpuscular Hemoglobin 29, Mean Corpuscular Hemoglobin Concent 31L, Red Cell Distribution Width 15.3H, Platelet Count 156, Mean Platelet Volume 12.5H, Immature Granulocyte % (Auto) 1, Neutrophils (%) (Auto) 73, Lymphocytes (%) (Auto) 18, Monocytes (%) (Auto) 8, Eosinophils (%) (Auto) 0, Basophils (%) (Auto) 0, Neutrophils # (Auto) 8.5H, Lymphocytes # (Auto) 2.1, Monocytes # (Auto) 0.9, Eosinophils # (Auto) 0.1, Basophils # (Auto) 0.0, Immature Granulocyte # (Auto) 0.1 ANAM FITCH DO Apr 18, 2022 07:22
--- NOTE | 2022-04-18 07:23 | Discharge Inst-Women's Service ---
Discharge Inst-Women's Serv Depart Medication/Instructions New, Converted or Re-Newed RX: Transmitted to Pharmacy Final Diagnosis PPD 2 NVD Problems Reviewed?: Yes Consults/Follow Up Additional Follow Up: Yes Orders/Referrals Dr. Fitch/Ruy/Keri in 6 weeks Activity Activity: Activity as Tolerated Driving Instructions: No Driving for 1 Week NO SMOKING: NO SMOKING Nothing Inside Vagina: No Douching, No [place], No Tampons Diet Discharge Diet: No Restrictions Symptoms to Report to : Bleeding Excessive, Pain Increased, Fever Over 101 Degrees F, Vaginal Bleeding Increase, Questions/Concerns For Any Problems or Questions: Contact Your Physician ANAM FITCH DO Apr 18, 2022 07:23
[2022-04-18] MEDS ORDERED: BENZ78AE5 TP (07:25)
[2022-04-18] MEDS ORDERED: IBUP-844 PO (07:25)
[2022-04-18] MEDS ORDERED: DIBU30OI TOP (07:25)
[2022-04-18] MEDS ORDERED: ACHD5005 PO (07:25)
[2022-04-18] MEDS ORDERED: PNV1TABL67 PO (07:25)
[2022-04-18] MEDS ORDERED: FERR325T24 PO (07:25)
[2022-04-18] MEDS ORDERED: DOCU100C37 PO (07:25)
[2022-04-18] MEDS: CATHETER FLUSH 10 ML SYR IV SCH ×2 (08:30→14:54)
[2022-04-18] MEDS: FERROUS SULF 325 MG (IRON) TAB PO SCH ×2 (08:31→12:15)
[2022-04-18] MEDS: DOCUSATE SODIUM 100 MG (COLACE) CAP PO SCH (08:32)
[2022-04-18 08:35] VITALS: BP 121/67
[2022-04-18] MEDS ORDERED: FERROUS SULF 325 MG (IRON) TAB PO SCH (09:00)
[2022-04-18 12:16] VITALS: BP 109/60
[2022-04-18] MEDS ORDERED: MEASLES,MUMPS,RUBELLA 1 EA INJ ONE (12:21)
== END 2022-04-18 16:45 | disposition home or self-care (01) | DRG 806 ==
LOC: WSo 03:26 → LDRP 03:27 → WSo 04:00 → LDRP 04:02
PROVIDERS: ADMIT Obstetrics & Gynecology; ATTEND Obstetrics & Gynecology
PROC: 10E0XZZ Delivery of Products of Conception, External Approach (ICD-10-PCS; principal; 2022-04-17)
PROC: 0KQM0ZZ Repair Perineum Muscle, Open Approach (ICD-10-PCS; 2022-04-17)
PROC: 0W8NXZZ Division of Female Perineum, External Approach (ICD-10-PCS; 2022-04-17)
DX: O70.1 Second degree perineal laceration during delivery (principal); D62 Acute posthemorrhagic anemia; Z37.0 Single live birth; O72.2 Delayed and secondary postpartum hemorrhage; Z3A.39 39 weeks gestation of pregnancy; O90.81 Anemia of the puerperium; Z23 Encounter for immunization; Z28.310 Unvaccinated for COVID-19
CPT/HCPCS: 36415; 84112; 85007; 85025; 85027; 86850; 86900; 86901; 90707

== ENCOUNTER 2022-04-22 16:51 | Emergency (ER) | payer MEDICAID ==
[~2022-04-22] VITALS: Ht 152.4 cm; Wt 81.6 kg
[~2022-04-22 16:51] MED LIST changes: +ACHD5005 PO; +BENZ78AE5 TP; +DIBU30OI TOP; +DOCU100C37 PO; +FERR325T24 PO; +IBUP-844 PO; +PNV1TABL67 PO
[2022-04-22 17:07] VITALS: BP 137/88
[2022-04-22] MEDS ORDERED: LACTATED RINGERS 1,000 ML IV SCH (17:15)
[2022-04-22 17:30] LABS: BASOPHILS % (AUTO) 0 % (0-10); EOSINOPHILS # (AUTO) 0.2 10^3/uL (0.0-0.3); EOSINOPHILS % (AUTO) 1 % (0-10); HEMATOCRIT 25 % (35-52); HEMOGLOBIN 7.6 g/dL (11.5-16.0); LYMPHOCYTES # (AUTO) 1.9 10^3/uL (1.0-4.0); LYMPHOCYTES % (AUTO) 16 % (12-44); MEAN CORPUSCULAR HEMOGLOBIN 29 pg (25-34); MEAN CORPUSCULAR HGB CONC 30 g/dL (32-36); MEAN CORPUSCULAR VOLUME 95 fL (80-99); MEAN PLATELET VOLUME 10.7 fL (9.0-12.2); MONOCYTES # (AUTO) 0.7 10^3/uL (0.0-1.0); MONOCYTES % (AUTO) 6 % (0-12); NEUTROPHILS # (AUTO) 8.4 10^3/uL (1.8-7.8); NEUTROPHILS % (AUTO) 68 % (42-75); PLATELET COUNT 321 10^3/uL (130-400); WHITE BLOOD COUNT 12.3 10^3/uL (4.3-11.0)
--- NOTE | 2022-04-22 17:31 | ED General ---
General Chief Complaint: General Problems/Pain Stated Complaint: NEEDS TO GET FLUID Source of Information: Patient Exam Limitations: No Limitations History of Present Illness Date Seen by Provider: Apr 22, 2022 Time Seen by Provider: 17:29 Initial Comments To ER by private vehicle with reports of shortness of breath intermittently and fatigue. She had a vaginal delivery 5 or 6 days ago here. She has still got some ongoing vaginal bleeding, she has used 8 pads today. She reports lower abdominal pain and tenderness. No measured fevers. No cough. Timing/Duration: 1-2 Days Severity: Moderate Associated Systoms: Denies Symptoms Allergies and Home Medications Allergies Coded Allergies: No Known Drug Allergies (Unverified , 11/28/19) Patient Home Medication List Home Medication List Reviewed: Yes Benzocaine/Menthol (Dermoplast Pain Relieving [place]) 20 %-0.5 % Aerosol, 56 EA TP UD PRN for PAIN- SEE INSTRUCTIONS Prescribed by: ANAM FITCH on 04/18/22724 Dibucaine (Dibucaine) 1 % Oint, 0 GM TOP UD PRN for PAIN- SEE INSTRUCTIONS Prescribed by: ANAM FITCH on 04/18/22724 Docusate Sodium (Docusate Sodium) 100 Mg Capsule, 100 MG PO BID PRN for CONSTIPATION-1ST LINE Prescribed by: ANAM FITCH on 04/18/22724 Ferrous Sulfate (Ferosul) 325 Mg (65 Mg Iron) Tablet, 325 MG PO TIDWM Prescribed by: ANAM FITCH on 04/18/22724 Hydrocodone Bit/Acetaminophen (HYDROcodone/APAP 5 MG/325 MG TAB) 1 Tab Tab, 1 EA PO Q4H PRN for PAIN-MODERATE (5-7) Prescribed by: ANAM FITCH on 04/18/22 07 Ibuprofen (Ibu) 600 Mg Tablet, 600 MG PO Q6HR Prescribed by: ANAM FITCH on 04/18/22 07 Pnv with Ca,No.72/Iron/FA (Pnv Plus Multivit Tab) 27 Mg Iron-1 Mg Tablet, 1 EA PO DAILY@0700 Prescribed by: ANAM FITCH on 04/18/22 07 Discontinued Medications Acetaminophen (Acetaminophen) 500 Mg Tablet, 1,000 MG PO Q8H PRN for PAIN-MILD (1-4) Prescribed by: GOPI ORTIZ on 03/10/21 0854 Vit W-Ca,Fe,FA(<1 mg) ( Vitamins) 1 Each Tablet, 1 EACH PO DAILY, (Reported) Entered as Reported by: LEMUEL LOVING on 12/20/21 0927 Review of Systems Review of Systems Constitutional: see HPI, diaphoresis EENTM: see HPI Respiratory: see HPI, short of breath Cardiovascular: no symptoms reported Gastrointestinal: abdominal pain Genitourinary: see HPI Musculoskeletal: no symptoms reported Skin: no symptoms reported Psychiatric/Neurological: No Symptoms Reported Past Hnhlvmq-Fqdmnf-Stdrps Hx Patient Social History Tobacco Use?: No Smoking Status: Never a Smoker Smokeless Tobacco Frequency: Never a User Use of E-Cig and/or Vaping dev: No Use of E-Cig and/or Vaping Rainer: Never a User Substance use?: No Alcohol Use?: No Pt feels they are or have been: No Immunizations Up To Date Tetanus Booster (TDap): Unknown Seasonal Allergies Seasonal Allergies: No Past Medical History Surgeries: No Respiratory: No Cardiac: No Neurological: No Reproductive Disorders: No Genitourinary: No Gastrointestinal: No Musculoskeletal: No Endocrine: No HEENT: No Cancer: No Psychosocial: No Integumentary: No Blood Disorders: No Physical Exam Vital Signs Vital Signs - First Documented 04/22/22 17:07 Temp 36.6 Pulse 102 Resp 16 B/P (MAP) 137/88 (104) O2 Delivery Room Air Capillary Refill : Height, Weight, BMI Height: '" Weight: lbs. oz. kg; 37.22 BMI Method: General Appearance: No Apparent Distress, WD/WN, Other (Alert and oriented. Her heart rate is 97 her oxygen is also 97%. Her blood pressure is adequate at 135/84. She is alert and oriented GCS 15 no distress) Eyes: Bilateral Eye Normal Inspection, Bilateral Eye PERRL, Bilateral Eye EOMI HEENT: PERRL/EOMI, TMs Normal Neck: Full Range of Motion, Normal Inspection Respiratory: No Accessory Muscle Use, No Respiratory Distress Cardiovascular: Regular Rate, Rhythm, Normal Peripheral Pulses Gastrointestinal: Normal Bowel Sounds, Soft, Tenderness Extremity: Normal Capillary Refill, Normal Inspection Neurologic/Psychiatric: Alert, Oriented x3 Skin: Normal Color, Warm/Dry Progress/Results/Core Measures Suspected Sepsis SIRS Temperature: Pulse: Respiratory Rate: Laboratory Tests 04/22/22 17:18: White Blood Count 12.3H Blood Pressure / Mean: Laboratory Tests 04/22/22 17:18: Creatinine 0.68, Platelet Count 321, Total Bilirubin 0.6 Results/Orders Lab Results Laboratory Tests Test 04/22/22 17:16 04/22/22 17:18 Range/Units Influenza Type A (RT-PCR) Not Detected Not Detecte Influenza Type B (RT-PCR) Not Detected Not Detecte SARS-CoV-2 RNA (RT-PCR) Detected H Not Detecte White Blood Count 12.3 H 4.3-11.0 10^3/uL Red Blood Count 2.65 L 3.80-5.11 10^6/uL Hemoglobin 7.6 L 11.5-16.0 g/dL Hematocrit 25 L 35-52 % Mean Corpuscular Volume 95 80-99 fL Mean Corpuscular Hemoglobin 29 25-34 pg Mean Corpuscular Hemoglobin Concent 30 L 32-36 g/dL Red Cell Distribution Width 17.2 H 10.0-14.5 % Platelet Count 321 130-400 10^3/uL Mean Platelet Volume 10.7 9.0-12.2 fL Immature Granulocyte % (Auto) 9 % Neutrophils (%) (Auto) 68 42-75 % Lymphocytes (%) (Auto) 16 12-44 % Monocytes (%) (Auto) 6 0-12 % Eosinophils (%) (Auto) 1 0-10 % Basophils (%) (Auto) 0 0-10 % Neutrophils # (Auto) 8.4 H 1.8-7.8 10^3/uL Lymphocytes # (Auto) 1.9 1.0-4.0 10^3/uL Monocytes # (Auto) 0.7 0.0-1.0 10^3/uL Eosinophils # (Auto) 0.2 0.0-0.3 10^3/uL Basophils # (Auto) 0.0 0.0-0.1 10^3/uL Immature Granulocyte # (Auto) 1.1 H 0.0-0.1 10^3/uL Sodium Level 138 135-145 MMOL/L Potassium Level 4.2 3.6-5.0 MMOL/L Chloride Level 102 98-107 MMOL/L Carbon Dioxide Level 26 21-32 MMOL/L Anion Gap 10 5-14 MMOL/L Blood Urea Nitrogen 13 7-18 MG/DL Creatinine 0.68 0.60-1.30 MG/DL Estimat Glomerular Filtration Rate 127 BUN/Creatinine Ratio 19 Glucose Level 85 70-105 MG/DL Calcium Level 9.2 8.5-10.1 MG/DL Corrected Calcium 9.6 8.5-10.1 MG/DL Total Bilirubin 0.6 0.1-1.0 MG/DL Aspartate Amino Transf (AST/SGOT) 141 H 5-34 U/L Alanine Aminotransferase (ALT/SGPT) 77 H 0-55 U/L Alkaline Phosphatase 207 H 40-136 U/L B-Type Natriuretic Peptide 64.2 <100.0 PG/ML Total Protein 7.0 6.4-8.2 GM/DL Albumin 3.5 3.2-4.5 GM/DL My Orders Orders - CARLOS MORAN PROBATION COUNSELOR Cbc With Automated Diff (04/22/22 17:06) Comprehensive Metabolic Panel (04/22/22 17:06) Chest 1 View, Ap/Pa Only (04/22/22 17:06) Bnp Tarsha (04/22/22 17:06) Ed Iv/Invasive Line Start (04/22/22 17:06) Lactated Ringers (Lr 1000 Ml Iv Solution (04/22/22 17:15) Covid 19 Inhouse Test (04/22/22 17:06) Influenza A And B By Pcr (04/22/22 17:06) Oxycodone/Apap 5/325mg Tablet (Percocet (04/22/22 17:45) Ct Angio Chest W (04/22/22 18:16) Iohexol Injection (Omnipaque 350 Mg/Ml 1 (04/22/22 18:30) Di Iv Start (Assessment) .IV start (04/22/22 18:24) Received Contrast (Hold Metformin- Contr (04/22/22 18:30) Ns (Ivpb) (Sodium Chloride 0.9% Ivpb Bag (04/22/22 18:30) Sodium Chloride Flush (Catheter Flush Sy (04/22/22 18:30) Medications Given in ED Current Medications Medications Dose Ordered Sig/Cosem Route Start Time Stop Time Status Last Admin Dose Admin Iohexol 100 ml ONCE ONCE IV 04/22/22 18:30 04/22/22 18:31 DC 04/22/22 18:41 72 ML Oxycodone/ Acetaminophen 1 tab ONCE ONCE PO 04/22/22 17:45 04/22/22 17:46 DC 04/22/22 17:36 1 TAB Sodium Chloride 10 ml NEEDED PRN IV 04/22/22 18:30 04/22/22 18:41 10 ML Sodium Chloride 100 ml ONCE ONCE IV 04/22/22 18:30 04/22/22 18:31 DC 04/22/22 18:41 80 ML Vital Signs/I&O 04/22/22 04/22/22 17:07 17:07 Temp 36.6 Pulse 102 Resp 16 B/P (MAP) 137/88 (104) O2 Delivery Room Air Room Air Capillary Refill : Departure Communication (Admissions) 1826-I spoke with Dr. Arias, patient is not saturating her pads she is only changing them because they have blood on them. She has not passed any clots. Her positive COVID test would explain her episodes of diaphoresis, shortness of breath body aches and fatigue. We will proceed with CT angio chest to ensure there is no pulmonary embolism and then discharged home. Her hemoglobin is actually increasing, it was 6.8 four days ago so she is actually rising in that regard. NAME: ALEX LANDAVERDE [facility] REC#: [id number] PT STATUS: REG ER : 2000 PHYSICIAN: CARLOS MORAN APRN ADMIT DATE: 04/22/22/ER Draft Date of Exam:04/22/22 CHEST 1 VIEW, AP/PA ONLY INDICATION: Dyspnea. COMPARISON: None available. TECHNIQUE: Single radiograph of the chest dated April 22, 2022. FINDINGS: The cardiac silhouette is within normal limits in size. No significant pulmonary vascular congestion. The lungs are clear of focal pulmonary opacity. No pleural effusion. No pneumothorax. No acute osseous abnormality. IMPRESSION: No acute cardiopulmonary abnormality. Dictated on workstation # [id number] Dict: 04/22/221740 Trans: 04/22/221742 [id number] Interpreted by: BERT MCKEON MD Electronically signed by: Impression Primary Impression: Symptomatic anemia Additional Impressions: COVID-19 anemia Disposition: HOME, SELF-CARE Condition: Stable Departure-Patient Inst. Decision time for Depature: 19:10 Referrals: [facility]AD[facility] (PCP) Primary Care Physician HOLLY MCCARTY MD (Family) Primary Care Physician Patient Instructions: COVID-19 (DC) Add. Discharge Instructions: 1. Return to ER for any concerns. Follow-up with your doctor next week. Quarantine for 5 days do not be around anyone that you have not been around within the past 24 hours. Tylenol and ibuprofen for pain and fevers. All discharge instructions reviewed with patient and/or family. Voiced understanding. CARLOS MORAN PROBATION COUNSELOR Apr 22, 2022 17:31
[2022-04-22 17:40] LABS: ALBUMIN 3.5 GM/DL (3.2-4.5)
[2022-04-22 17:41] LABS: POTASSIUM 4.2 MMOL/L (3.6-5.0)
[2022-04-22 17:42] LABS: CALCIUM 9.2 MG/DL (8.5-10.1)
--- NOTE | 2022-04-22 17:43 | Diagnostic Imaging Report ---
INDICATION: Dyspnea. COMPARISON: None available. TECHNIQUE: Single radiograph of the chest dated April 22, 2022. FINDINGS: The cardiac silhouette is within normal limits in size. No significant pulmonary vascular congestion. The lungs are clear of focal pulmonary opacity. No pleural effusion. No pneumothorax. No acute osseous abnormality. IMPRESSION: No acute cardiopulmonary abnormality. Dictated by: Dictated on workstation # [id number]
[2022-04-22 17:45] LABS: BILIRUBIN,TOTAL 0.6 MG/DL (0.1-1.0)
[2022-04-22] MEDS ORDERED: oxyCODONE/APAP 5/325MG (PERCOCET 5) TABLET PO ONE (17:45)
[2022-04-22 17:46] LABS: CREATININE SERUM 0.68 MG/DL (0.60-1.30)
[2022-04-22] MEDS ORDERED: CATHETER FLUSH 10 ML SYR IV PRN (18:30)
[2022-04-22] MEDS ORDERED: IOHEXOL 350 MG/ML 100 ML (OMNIPAQUE 350) VIAL IV ONE (18:30)
[2022-04-22] MEDS ORDERED: NS 100 ML (IVPB) BAG IV ONE (18:30)
[2022-04-22] MEDS ORDERED: HOLD METFORMIN - RECEIVED CONTRAST 20 ML VIAL IV SCH (18:30)
--- NOTE | 2022-04-22 18:58 | Diagnostic Imaging Report ---
PROCEDURE: CT angiography of the chest with contrast. TECHNIQUE: Multiple contiguous axial images were obtained through the chest after uneventful bolus administration of intravenous contrast. 3D reconstructed CTA MIP acquisitions were also performed. Auto Exposure Controls were utilized during the CT exam to meet ALARA standards for radiation dose reduction. INDICATION: Dyspnea, post delivery. COMPARISON: Radiographs from the same date. FINDINGS: No significant adenopathy within the chest. No aneurysmal dilatation of the thoracic aorta. Minimal soft tissue density is identified within the anterior mediastinum, felt to relate to residual thymic tissue. The heart is within normal limits in size. No pericardial effusion. No significant pleural effusion. The trachea is patent. No pneumothorax. The lungs are clear. Evaluation of subsegmental pulmonary arteries is severely limited secondary to respiratory motion. No definite filling defect within the central or segmental pulmonary arteries within the limits of the exam. Tiny hiatal hernia. The minimally visualized upper abdomen is unremarkable. No acute osseous abnormality. IMPRESSION: 1. No significant pulmonary embolus within the limits of the exam. 2. Tiny hiatal hernia. 3. Lungs appear clear. Dictated by: Dictated on workstation # [id number]
== END 2022-04-22 19:25 | disposition home or self-care (01) ==
LOC: EDUNIT# 16:51 → ER 16:54
DX: O98.53 Other viral diseases complicating the puerperium (principal); U07.1 COVID-19; O90.81 Anemia of the puerperium; Z28.310 Unvaccinated for COVID-19
CPT/HCPCS: 36415; 71045; 71275; 80053; 83880; 85025; 87636; 99283

== ENCOUNTER 2022-11-07 18:36 | Emergency (ER) | payer MEDICAID ==
[~2022-11-07] VITALS: Ht 165 cm; Wt 72.0 kg
[2022-11-07 19:32] LABS: BASOPHILS % (AUTO) 0 % (0-10); BILIRUBIN,URINE NEGATIVE (NEGATIVE); CLARITY,URINE CLEAR; COLOR,URINE YELLOW; EOSINOPHILS % (AUTO) 0 % (0-10); GLUCOSE, URINE (UA) NEGATIVE (NEGATIVE); HEMATOCRIT 40 % (35-52); HEMOGLOBIN 12.5 g/dL (11.5-16.0); KETONES,URINE NEGATIVE (NEGATIVE); LEUKOCYTE ESTERASE ,URINE NEGATIVE (NEGATIVE); LYMPHOCYTES # (AUTO) 2.6 10^3/uL (1.0-4.0); LYMPHOCYTES % (AUTO) 27 % (12-44); MEAN CORPUSCULAR HEMOGLOBIN 26 pg (25-34); MEAN CORPUSCULAR HGB CONC 31 g/dL (32-36); MEAN CORPUSCULAR VOLUME 85 fL (80-99); MEAN PLATELET VOLUME 12.1 fL (9.0-12.2); MONOCYTES # (AUTO) 0.4 10^3/uL (0.0-1.0); MONOCYTES % (AUTO) 5 % (0-12); NEUTROPHILS # (AUTO) 6.7 10^3/uL (1.8-7.8); NEUTROPHILS % (AUTO) 68 % (42-75); NITRITE,URINE NEGATIVE (NEGATIVE); PLATELET COUNT 204 10^3/uL (130-400); PROTEIN,URINE NEGATIVE (NEGATIVE); WHITE BLOOD COUNT 9.9 10^3/uL (4.3-11.0)
--- NOTE | 2022-11-07 19:34 | ED Neurological Problem ---
General Chief Complaint: Neuro-Stroke Like Symptoms Stated Complaint: SHAKINESS,RT SIDE FACIAL NUMBNESS,SOA Nursing Triage Note: PT AMB TO RM 6. PT REQUEST BATHROOM BEFORE STARTING TRIAGE. PT CO OF FEELING A LITTLE NERVOUS AND SHAKINESS, STATES MOUTH AND FACE HAD SOME NUMBNESS. STATES HAS GOTTEN SCARED AND BECAME SOA. PT STATES HAS ONLY DRANK COFFEE AND ATE SMALL PIECE OF SAUSAGE TODAY. PT STATES MAY HAVE BEEN BECAUSE OF COFFEE Source: patient Exam Limitations: no limitations History of Present Illness Date Seen by Provider: Nov 07, 2022 Time Seen by Provider: 18:59 Initial Comments This 22-year-old young lady presents to the emergency room with an unusual constellation of symptoms that started around 11:00 this morning. She was driving her baby to an appointment in [place] when she noticed generalized shakiness and an uncomfortable quivering in the right cheek. She then developed a heaviness described as a type of paresthesia in the right arm and then the right leg. She felt a little short of breath. She developed right-sided headache and sensitivity to touch. She denied any visual changes. She described a pain in her right teeth. She denies any fever, chills, sore throat, nausea, vomiting, or diarrhea. She reports frequently feeling very nervous and wonders if anxiety is a contributing factor. Pain was reportedly 7/10 at its worst while she was in the car. It is now 3/10. She has not taken any pain relieving medications. On exam she has a subtle weakness of the right extremities. NIH stroke score is 0 as this weakness does not result in any drif t. She denies as she is on Depo-Provera with her last injection being August 22. She is sexually active. Her baby was born in March 2022. She additionally complains of somewhat chronic lower abdominal pain in the suprapubic region that has been present since her childbirth. She also occasionally has some dizziness and vomiting in the mornings which has been present for about 2 months. She does not have a local primary care provider. She identifies Dr. FITCH as her [employer] provider. She denies having any prior episodes of these types of symptoms. Allergies and Home Medications Allergies Coded Allergies: No Known Drug Allergies (Unverified , 11/28/19) Patient Home Medication List Home Medication List Reviewed: Yes Benzocaine/Menthol (Dermoplast Pain Relieving [place]) 20 %-0.5 % Aerosol, 56 EA TP UD PRN for PAIN- SEE INSTRUCTIONS Prescribed by: ANAM FITCH on 04/18/22724 Dibucaine (Dibucaine) 1 % Oint, 0 GM TOP UD PRN for PAIN- SEE INSTRUCTIONS Prescribed by: ANAM FITCH on 04/18/22724 Docusate Sodium (Docusate Sodium) 100 Mg Capsule, 100 MG PO BID PRN for CONSTIP ATION-1ST LINE Prescribed by: ANAM FITCH on 04/18/22724 Ferrous Sulfate (Ferosul) 325 Mg (65 Mg Iron) Tablet, 325 MG PO TIDWM Prescribed by: ANAM FITCH on 04/18/22724 Hydrocodone Bit/Acetaminophen (HYDROcodone/APAP 5 MG/325 MG TAB) 1 Tab Tab, 1 EA PO Q4H PRN for PAIN-MODERATE (5-7) Prescribed by: ANAM FITCH on 04/18/22725 Hydroxyzine HCl (Hydroxyzine HCl) 25 Mg Tablet, 25 MG PO Q6H PRN for ANXIETY Prescribed by: TRACEY CABRERA on 11/07/222143 Ibuprofen (Ibu) 600 Mg Tablet, 600 MG PO Q6HR Prescribed by: ANAM FITCH on 04/18/22724 Pnv with Ca,No.72/Iron/FA (Pnv Plus Multivit Tab) 27 Mg Iron-1 Mg Tablet, 1 EA PO DAILY@0700 Prescribed by: ANAM FITCH on 04/18/22724 Promethazine HCl (Promethazine Tablet) 25 Mg Tablet, 25 MG PO Q6H PRN for NAUSEA/VOMITING Prescribed by: TRACEY CABRERA on 11/07/222143 Review of Systems Review of Systems Constitutional: see HPI Eyes: See HPI Ears, Nose, Mouth, Throat: no symptoms reported Respiratory: see HPI Cardiovascular: no symptoms reported Gastrointestinal: see HPI Genitourinary: see HPI : No Musculoskeletal: no symptoms reported Skin: no symptoms reported Endocrine: No Symptoms Reported Hematologic/Lymphatic: No Symptoms Reported Past Vqorxfl-[id number]-Dgdgvp Hx Patient Social History Tobacco Use?: No Substance use?: No Alcohol Use?: No Pt feels they are or have been: No Immunizations Up To Date Tetanus Booster (TDap): Unknown Influenza Vaccine Up-to-Date: No; Not Current Seasonal Allergies Seasonal Allergies: No Past Medical History Surgery/Hospitalization HX: UTI FINISHED MEDICATION YESTERDAY Surgeries: No Respiratory: No Cardiac: No Neurological: No Reproductive Disorders: No Genitourinary: No Gastrointestinal: No Musculoskeletal: No Endocrine: No HEENT: No Cancer: No Psychosocial: No Integumentary: No Blood Disorders: No Physical Exam Vital Signs Vital Signs - First Documented 11/07/22 11/07/22 18:49 22:01 Temp 37.2 Pulse 93 Resp 18 B/P (MAP) 132/80 (97) Pulse Ox 100 O2 Delivery Room Air Capillary Refill : Less Than 3 Seconds Height, Weight, BMI Height: '" Weight: lbs. oz. 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, alert, normal mood/affect, oriented x 3; No abnormal computer repair instructor II-XII, No facial droop; motor weakness (Subtle weakness of the right upper and right lower extremity with strength at 4 out of 5 when compared with the left) Crainal Nerves: normal hearing, normal speech, PERRL Coordination/Gait: normal finger to nose Motor/Sensory: no sensory deficit (Sensation intact throughout but altered perception of sensation on the right) Stroke NIH Stroke Scale Assessment Select: Initial Level of Consciousness: 0=Alert (0), Level of Consciousness- Questions: 0=Answers both month/age (0), LOC Commands: 0=Performs both tasks (0), Gaze: Normal (0), Visual Estrada: 0=No visual loss (0), Facial Movement (Facial Paresis): 0=Normal symmetrical mnt (0), Motor Function-Arms Right: 0=No drift (0), Motor Function-Arms Left: 0=No drift (0), Motor Function-Legs Right: 0=No drift (0), Motor Function-Legs Left: 0=No drift (0), Limb Ataxia: 0=Absent (0), Sensory: 0=Normal:no loss (0), Best Language: 0=No aphasia (0), Dysarthria: 0=Normal (0), Extinction & Inattention: 0=No abnormality (0), Total: 0 Progress/Results/Core Measures Results/Orders Lab Results Laboratory Tests Test 11/07/22 18:52 11/07/22 18:59 Range/Units White Blood Count 9.9 4.3-11.0 10^3/uL Red Blood Count 4.74 3.80-5.11 10^6/uL Hemoglobin 12.5 11.5-16.0 g/dL Hematocrit 40 35-52 % Mean Corpuscular Volume 85 80-99 fL Mean Corpuscular Hemoglobin 26 25-34 pg Mean Corpuscular Hemoglobin Concent 31 L 32-36 g/dL Red Cell Distribution Width 14.1 10.0-14.5 % Platelet Count 204 130-400 10^3/uL Mean Platelet Volume 12.1 9.0-12.2 fL Immature Granulocyte % (Auto) 0 % Neutrophils (%) (Auto) 68 42-75 % Lymphocytes (%) (Auto) 27 12-44 % Monocytes (%) (Auto) 5 0-12 % Eosinophils (%) (Auto) 0 0-10 % Basophils (%) (Auto) 0 0-10 % Neutrophils # (Auto) 6.7 1.8-7.8 10^3/uL Lymphocytes # (Auto) 2.6 1.0-4.0 10^3/uL Monocytes # (Auto) 0.4 0.0-1.0 10^3/uL Eosinophils # (Auto) 0.0 0.0-0.3 10^3/uL Basophils # (Auto) 0.0 0.0-0.1 10^3/uL Immature Granulocyte # (Auto) 0.0 0.0-0.1 10^3/uL Prothrombin Time 12.8 12.2-14.7 SEC INR Comment 0.9 0.8-1.4 Activated Partial Thromboplast Time 36 H 24-35 SEC D-Dimer 0.06 0.00-0.49 UG/ML Urine Color YELLOW Urine Clarity CLEAR Urine pH 6.0 5-9 Urine Specific [place] 1.015 L 1.016-1.022 Urine Protein NEGATIVE NEGATIVE Urine Glucose (UA) NEGATIVE NEGATIVE Urine Ketones NEGATIVE NEGATIVE Urine Nitrite NEGATIVE NEGATIVE Urine Bilirubin NEGATIVE NEGATIVE Urine Urobilinogen 0.2 < = 1.0 MG/DL Urine Leukocyte Esterase NEGATIVE NEGATIVE Urine RBC (Auto) 2+ H NEGATIVE Urine RBC 0-2 /HPF Urine WBC 0-2 /HPF Urine Squamous Epithelial Cells 10-25 H /HPF Urine Crystals NONE /LPF Urine Bacteria TRACE /HPF Urine Casts NONE /LPF Urine Mucus NEGATIVE /LPF Urine Culture Indicated NO Sodium Level 139 135-145 MMOL/L Potassium Level 3.7 3.6-5.0 MMOL/L Chloride Level 104 98-107 MMOL/L Carbon Dioxide Level 23 21-32 MMOL/L Anion Gap 12 5-14 MMOL/L Blood Urea Nitrogen 16 7-18 MG/DL Creatinine 0.86 0.60-1.30 MG/DL Estimat Glomerular Filtration Rate 99 BUN/Creatinine Ratio 19 Glucose Level 106 H 70-105 MG/DL Calcium Level 10.0 8.5-10.1 MG/DL Corrected Calcium 8.5-10.1 MG/DL Magnesium Level 2.1 1.6-2.4 MG/DL Total Bilirubin 0.9 0.1-1.0 MG/DL Aspartate Amino Transf (AST/SGOT) 59 H 5-34 U/L Alanine Aminotransferase (ALT/SGPT) 113 H 0-55 U/L Alkaline Phosphatase 99 40-136 U/L Troponin I < 0.028 <0.028 NG/ML Total Protein 8.3 H 6.4-8.2 GM/DL Albumin 4.7 H 3.2-4.5 GM/DL TSH [place] Testing 0.43 0.35-4.94 UIU/ML Serum Test, Qualitative NEGATIVE NEGATIVE Glucometer 115 H 70-110 MG/DL My Orders Orders - TRACEY CHEUNG MD Cbc With Automated Diff (11/07/22 19:) Protime With Inr (11/07/22 19:24) Partial Thromboplastin Time (11/07/22 19:24) Comprehensive Metabolic Panel (11/07/22 19:24) Fibrin Degradation Products (11/07/22 19:24) Troponin I [place] (11/07/22 19:24) Ua Culture If Indicated (11/07/22 19:24) Chest 1 View, Ap/Pa Only (11/07/22 19:24) Ekg Tracing (11/07/22 19:24) Nothing By Mouth (11/07/22 Dinner) Accucheck Stat ONCE (11/07/22 19:24) Ed Iv/Invasive Line Start (11/07/22 19:24) Ed Iv/Invasive Line Start (11/07/22 19:24) Vital Signs Stroke Patient Q15M (11/07/22 19:24) Ct Head Wo-R/O Stroke (11/07/22 19:24) O2 (11/07/22 19:24) Intake & Output 06,14,22 (11/07/22 19:24) Monitor-Rhythm Ecg Trace Only (11/07/22 19:24) Dysphagia Screening Tool [id number] (11/07/22 19:24) Post Thrombolytic Adminstratio (11/07/22 19:24) Hcg,Qualitative Serum (11/07/22 19:24) Thyroid Analyzer (11/07/22 19:24) Magnesium (11/07/22 19:24) Ketorolac Injection (Toradol Injection) (11/07/22 20:15) Promethazine Injection (Phenergan Injec (11/07/22 20:15) Diphenhydramine Tablet (Benadryl Tablet) (11/07/22 20:15) Lactated Ringers (Lr 1000 Ml Iv Solution (11/07/22 20:15) Medications Given in ED Current Medications Medications Dose Ordered Sig/[place]me Route Start Time Stop Time Status Last Admin Dose Admin Diphenhydramine HCl 25 mg ONCE ONCE PO 11/07/22 20:15 11/07/22 20:16 DC 11/07/22 20:40 25 MG Ketorolac Tromethamine 30 mg ONCE ONCE IVP 11/07/22 20:15 11/07/22 20:16 DC 11/07/22 20:41 30 MG Lactated Ringer's 1,000 ml @ 0 mls/hr Q0M ONCE IV 11/07/22 20:15 11/07/22 20:16 DC 11/07/22 20:46 1,000 MLS/HR Promethazine HCl 25 mg ONCE ONCE IVP 11/07/22 20:15 11/07/22 20:16 DC 1/16/23 20:46 25 MG Vital Signs/I&O 11/07/22 11/07/22 18:49 22:01 Temp 37.2 Pulse 93 78 Resp 18 12 B/P (MAP) 132/80 (97) 123/98 Pulse Ox 100 99 O2 Delivery Room Air Blood Pressure Mean: 97 FSBG Bedside Testing Finger Stick Blood Glucose: 115 Blood Glucose Action Taken: RN NOTIFIED PROVIDER. Progress Progress Note #1: Time: 19:28 Progress Note Patient was interviewed and examined shortly after arrival. She describes paresthesia with both numbness and a hypersensitivity throughout the right face and right extremities. Last known well time was before 1100 today. She therefore would not be a thrombolytic candidate if stroke were suspected. She has fairly intense headache as well. NIH stroke score was performed and was 0. Although NIH stroke score was 0, patient did have some subtle weakness detectable on exam in the right upper and lower extremity. She also reported any variance in sensation throughout the right face and extremities. For this reason a stroke activation was paged. There is no obvious abnormality seen on the CT, we will treat with a migraine cocktail and monitor progress. Patient reports pain is 3/10 at present and was 7/10 at its worst. Progress Note #2: Progress Note Patient had no major abnormalities in her work-up. Labs including CBC, CMP, thyroid, troponin, D-dimer, and urinalysis were all relatively unremarkable. Imaging studies were negative. Patient was treated with a migraine cocktail that included IV fluids, Phenergan, Benadryl, and Toradol. She had resolution of her pain. Case was discussed with Dr. Ngo, stroke neurologist at [facility]. He agreed with this approach and agreed with discharge home. See discharge instructions for further discussion. Hydroxyzine was prescribed for anxiety management and Phenergan was prescribed for treatment of nausea associated with headaches. Patient was thought to likely have experienced an atypical migraine. Repeat examination prior to discharge revealed resolution of the subtle weakness previously found on exam. Initial ECG Impression Date: Nov 07, 2022 Initial ECG Impression Time: 19:41 Initial ECG Rate: 86 Initial ECG Rhythm: Normal Sinus Initial ECG Intervals: Normal Comment Sinus rhythm with no ST elevation or depression. No abnormal intervals or axis deviation. Diagnostic Imaging Diagonstic Imaging: CT Plain Films/CT/US/NM/MRI: head Comments CT head viewed by me. No acute abnormalities were appreciated. Radiologist report also reviewed as below: NAME: [facility] REC#: [id number] PT STATUS: REG ER : 2001 PHYSICIAN: TRACEY CHEUNG MD ADMIT DATE: 11/07/22/ER Signed Date of Exam:11/07/22 CT HEAD WO-R/O STROKE INDICATION: Right-sided weakness. TECHNIQUE: Multiple contiguous axial images were obtained through the brain without the use of intravenous contrast. Auto Exposure Controls were utilized during the CT exam to meet ALARA standards for radiation dose reduction. There is no previous CT for comparison. There were no extra-axial fluid collections. No intracranial hemorrhage. No intracranial mass or mass effect. No midline shift. The ventricles are normal in size and position. There were no focal parenchymal abnormalities in the brain. Calvarial windows are unremarkable. IMPRESSION: Negative noncontrast brain CT. Dictated by: Dictated on workstation # [id number] Dict: 11/07/221931 Trans: 11/07/222017 CHRIS [id number] Interpreted by: YAMILKA COON MD Electronically signed by: YAMILKA COON MD 11/07/222017 Diagonstic Imaging: Xray Plain Films/CT/US/NM/MRI: chest Comments NAME: [facility] REC#: [id number] PT STATUS: REG ER : 2001 PHYSICIAN: TRACEY CHEUNG MD ADMIT DATE: 11/07/22/ER Signed Date of Exam:11/07/22 CHEST 1 VIEW, AP/PA ONLY INDICATION: Stroke, right-sided weakness. Frontal chest obtained at 0724 p.m. and compared to 04/22/22. Heart and mediastinal silhouette are normal in appearance. The lungs are clear. There is no pneumothorax or pleural fluid. IMPRESSION: Negative chest. Dictated by: Dictated on workstation # [id number] Dict: 11/07/222011 Trans: 11/07/222017 CHRIS [id number] Interpreted by: YAMILKA COON MD Electronically signed by: YAMILKA COON MD 11/07/222017 Departure Impression Primary Impression: Right sided weakness Additional Impressions: Right-sided paresthesia Acute headache Qualified Codes: R51.9 - Headache, unspecified Lower abdominal pain Anxiety Disposition: 01 HOME, SELF-CARE Condition: Improved Departure-Patient Inst. Decision time for Depature: 21:39 Referrals: [facility] (PCP/Family) Primary Care Physician Patient Instructions: Anxiety, Adult ED, Migraines (DC), Paresthesia (DC) Add. Discharge Instructions: Your symptoms are likely due to an atypical migraine. If symptoms return, try to rest in a quiet, calm environment. Take ibuprofen 600 mg and Tylenol (acetaminophen) up to 1000 mg every 6 hours as needed for the pain. If there is nausea, take the Phenergan (promethazine) as prescribed. Please be advised this medication may make you drowsy. If you are symptoms involve weakness or numbness of any body part, drooping of the face, difficulty speaking, confusion, difficulty understanding speech, or vision changes, return to the emergency room for further evaluation. Please follow-up with a primary care provider soon as possible. Discuss your anxiety with a primary care provider. In the meantime, you may use hydroxyzine as prescribed if you are having a panic attack or severe anxiety. Please note that both Phenergan and hydroxyzine may cause drowsiness. Do not drive or operate machinery after taking these medications. Please follow-up with Dr. FITCH for your lower abdominal pain. All discharge instructions reviewed with patient and/or family. Voiced understanding. Scripts Hydroxyzine HCl (Hydroxyzine HCl) 25 Mg Tablet 25 MG PO Q6H PRN for ANXIETY, #10 TAB Prov: TRACEY CHEUNG MD 11/07/22 Promethazine HCl (Promethazine Tablet) 25 Mg Tablet 25 MG PO Q6H PRN for NAUSEA/VOMITING, #10 TAB Prov: TRACEY CHEUNG MD 11/07/22 Work/School Note: Work Release Form Date Seen in the Emergency Department: Nov 07, 2022 Return to Work: Nov 08, 2022 Restrictions: No Restrictions Copy Copies To 1: ANAM FITCH JOSHUA T MD Nov 07, 2022 19:34
[2022-11-07 19:39] LABS: ALBUMIN 4.7 GM/DL (3.2-4.5)
[2022-11-07 19:40] LABS: CHLORIDE 104 MMOL/L (98-107); POTASSIUM 3.7 MMOL/L (3.6-5.0); SODIUM 139 MMOL/L (135-145)
[2022-11-07 19:42] LABS: GLUCOSE 106 MG/DL (70-105); TOTAL PROTEIN 8.3 GM/DL (6.4-8.2)
[2022-11-07 19:43] LABS: CARBON DIOXIDE 23 MMOL/L (21-32)
[2022-11-07 19:44] LABS: BILIRUBIN,TOTAL 0.9 MG/DL (0.1-1.0)
[2022-11-07 19:45] LABS: ALKALINE PHOSPHATASE 99 U/L (40-136); BACTERIA,URINE TRACE /HPF; RBC,URINE 0-2 /HPF; WBC,URINE 0-2 /HPF
[2022-11-07 19:46] LABS: CREATININE SERUM 0.86 MG/DL (0.60-1.30); GFR ESTIMATED 99
[2022-11-07 19:47] LABS: BUN/CREATININE RATIO 19
[2022-11-07 19:49] LABS: ALANINE AMINOTRANSFERASE 113 U/L (0-55); MAGNESIUM 2.1 MG/DL (1.6-2.4)
[2022-11-07 20:01] LABS: FIBRIN DEGRADATION PRODUCTS 0.06 UG/ML (0.00-0.49); INR 0.9 (0.8-1.4); PROTHROMBIN TIME PATIENT 12.8 SEC (12.2-14.7)
[2022-11-07] MEDS ORDERED: diphenhydrAMINE 25 MG TAB (BENADRYL) PO ONE (20:15)
[2022-11-07] MEDS ORDERED: KETOROLAC 30 MG/ML VIAL IVP ONE (20:15)
[2022-11-07] MEDS ORDERED: PROMETHAZINE INJ 25 MG/ML (PHENERGAN) AMP IVP ONE (20:15)
[2022-11-07] MEDS ORDERED: LACTATED RINGERS 1,000 ML IV ONE (20:15)
--- NOTE | 2022-11-07 20:19 | Diagnostic Imaging Report ---
INDICATION: Stroke, right-sided weakness. Frontal chest obtained at 0724 p.m. and compared to 04/22/22. Heart and mediastinal silhouette are normal in appearance. The lungs are clear. There is no pneumothorax or pleural fluid. IMPRESSION: Negative chest. Dictated by: Dictated on workstation # [id number]
[2022-11-07 20:44] LABS: TSH (THYROID ANALYZER) 0.43 UIU/ML (0.35-4.94)
[2022-11-07] MEDS ORDERED: PROM25TA14 PO (21:44)
[2022-11-07] MEDS ORDERED: HYDR-700 PO (21:44)
[2022-11-07 22:01] VITALS: BP 123/98
== END 2022-11-07 22:03 | disposition home or self-care (01) ==
LOC: EDUNIT# 18:36 → ER 18:39
DX: F41.9 Anxiety disorder, unspecified (principal); R20.2 Paresthesia of skin; R10.30 Lower abdominal pain, unspecified; R20.0 Anesthesia of skin; Z32.02 Encounter for pregnancy test, result negative
CPT/HCPCS: 36415; 70450; 71045; 80053; 81000; 82947; 83735; 84443; 84484; 84703; 85025; 85379; 85610; 85730; 93005; 93041

== ENCOUNTER → 2023-02-07 | Outpatient (CLI) | payer MEDICAID ==
[~2023-02-07] MED LIST changes: +HYDR-700 PO; +PROM25TA14 PO
--- NOTE | 2023-02-07 15:10 | Diagnostic Imaging Report ---
PROCEDURE: Pelvic comp/transvaginal sonogram. TECHNIQUE: Complete transabdominal and transvaginal pelvic ultrasound was performed. In addition, limited pelvic Doppler was performed. INDICATION: Pelvic pain. FINDINGS: The uterus is anteverted measuring 6.0 x 3.4 x 3.8 cm. Endometrium is 7 mm in thickness. No myometrial mass is identified. Right ovary measures 3.0 x 1.7 x 3.2 cm and the left ovary measures 2.9 x 1.6 x 2.0 cm. Ovaries contain small follicles. There is blood flow to both ovaries. No adnexal mass or free fluid is identified. IMPRESSION: Unremarkable transabdominal and transvaginal pelvic ultrasound with limited pelvic Doppler. Dictated by: Dictated on workstation # [id number]
== END ==
LOC: RAD 12:46
PROVIDERS: ATTEND Obstetrics & Gynecology
DX: R10.2 Pelvic and perineal pain (principal)
CPT/HCPCS: 76830; 76856

== ENCOUNTER 2023-05-22 11:39 | Emergency (ER) | payer MEDICAID ==
[~2023-05-22] VITALS: Ht 152.4 cm; Wt 81.6 kg
[2023-05-22] MEDS ORDERED: KETOROLAC 30 MG/ML VIAL IVP ONE (12:00)
[2023-05-22] MEDS ORDERED: diphenhydrAMINE INJ 50 MG/ML VIAL IVP ONE (12:00)
[2023-05-22] MEDS ORDERED: NS IV 1000 ML 1,000 ML IV STA (12:00)
[2023-05-22] MEDS ORDERED: PROCHLORPERAZINE 10 MG/2ML INJ (COMPAZINE) IV ONE (12:00)
--- NOTE | 2023-05-22 12:05 | ED General ---
General Stated Complaint: RT SIDE NUMBNESS | WEAKNESS | ABD PAIN Source of Information: Patient Exam Limitations: No Limitations (HOLDEN ROMANO) History of Present Illness Date Seen by Provider: May 22, 2023 Time Seen by Provider: 12:02 Initial Comments Patient is a 23-year-old female who presents ED with multiple complaints. She reports right-sided head pain rates 4 out of 10. Started around 3 PM yesterday with numbness and tingling sensation to her right upper and lower extremity. She states it feels like her right side is somewhat weaker than the left. This has remained constant since 3 PM. Symptoms started after drinking coffee. She reports a similar episode back in October was seen here in the ED diagnosed with atypical migraine. She states those symptoms did improve after being discharged. She started developing this substernal chest pain described as pressure with this right sided numbness and tingling. She reports pain with deep inspiration denies short of breath or cough. She also reports generalized abdominal pain for the past 2 weeks. She states she was seen at the clinic diagnosed with UTI placed on amoxicillin. She has no urinary symptoms vaginal bleeding vaginal discharge. Last menstrual cycle was in March. Pain is described as sharp and constant generalized worse in her lower abdomen and right side. She did have 1 episode of vomiting 1 episode of diarrhea. She states she has pain with bowel movements. She did have a bowel movement today and states it was soft without blood or mucus. She denies fever, chills, visual changes, history of diabetes, blurry vision, visual loss, dysuria, hematuria stroke, coronary artery disease. No recent travels or surgeries. No currently on anticoagulants (HOLDEN ROMANO) Allergies and Home Medications Allergies Coded Allergies: No Known Drug Allergies (Unverified , 11/28/19) Patient Home Medication List Home Medication List Reviewed: Yes (HOLDEN ROMAON) Benzocaine/Menthol (Dermoplast Pain Relieving [place]) 20 %-0.5 % Aerosol, 56 EA TP UD PRN for PAIN- SEE INSTRUCTIONS Prescribed by: ANAM FITCH on 04/18/22 3425 Dibucaine (Dibucaine) 1 % Oint, 0 GM TOP UD PRN for PAIN- SEE INSTRUCTIONS Prescribed by: ANAM FITCH on 04/18/22 8976 Docusate Sodium (Docusate Sodium) 100 Mg Capsule, 100 MG PO BID PRN for CONSTIPATION-1ST LINE Prescribed by: ANAM FITCH on 04/18/22724 Ferrous Sulfate (Ferosul) 325 Mg (65 Mg Iron) Tablet, 325 MG PO TIDWM Prescribed by: ANAM FITCH on 04/18/22724 Hydrocodone Bit/Acetaminophen (HYDROcodone/APAP 5 MG/325 MG TAB) 1 Tab Tab, 1 EA PO Q4H PRN for PAIN-MODERATE (5-7) Prescribed by: ANAM FITCH on 04/18/22725 Hydroxyzine HCl (Hydroxyzine HCl) 25 Mg Tablet, 25 MG PO Q6H PRN for ANXIETY Prescribed by: TRACEY CABRERA on 11/07/222143 Ibuprofen (Ibu) 600 Mg Tablet, 600 MG PO Q6HR Prescribed by: ANAM FITCH on 04/18/22724 Pnv with Ca,No.72/Iron/FA (Pnv Plus Multivit Tab) 27 Mg Iron-1 Mg Tablet, 1 EA PO DAILY@0700 Prescribed by: ANAM FITCH on 04/18/22724 Promethazine HCl (Promethazine Tablet) 25 Mg Tablet, 25 MG PO Q6H PRN for NAUSEA /VOMITING Prescribed by: TRACEY CABRERA on 11/07/222143 Review of Systems Review of Systems Constitutional: No chills, No diaphoresis, No fever, No malaise, No weakness EENTM: No ear pain, No blurred vision, No double vision Respiratory: No cough Cardiovascular: chest pain Gastrointestinal: No abdominal pain; diarrhea; No nausea; vomiting Genitourinary: No decreased output, No discharge Musculoskeletal: No back pain, No joint pain Skin: No change in color, No change in hair/nails (HOLDEN ROMANO) All Other Systems Reviewed Negative Unless Noted: Yes (HOLDEN ROMANO) Past [place]-Vik[place]-Wrkyfs Hx Immunizations Up To Date Tetanus Booster (TDap): Unknown (HOLDEN ROMANO) Seasonal Allergies Seasonal Allergies: No (HOLDEN ROMANO) Past Medical History Surgery/Hospitalization HX: UTI FINISHED MEDICATION YESTERDAY Surgeries: No Respiratory: No Cardiac: No Neurological: No Reproductive Disorders: No Genitourinary: No Gastrointestinal: No Musculoskeletal: No Endocrine: No HEENT: No Cancer: No Psychosocial: No Integumentary: No Blood Disorders: No (HOLDEN ROMANO) Physical Exam Vital Signs Vital Signs - First Documented 05/22/23 11:49 Temp 36.1 Pulse 85 Resp 17 B/P (MAP) 126/74 (91) O2 Delivery Room Air (TRACEY CHEUNG MD) Vital Signs Capillary Refill : (HOLDEN ROMANO) Height, Weight, BMI Height: '" Weight: lbs. oz. kg; 26.00 BMI Method: General Appearance: No Apparent Distress, WD/WN Eyes: Bilateral Eye Normal Inspection, Bilateral Eye PERRL, Bilateral Eye EOMI HEENT: PERRL/EOMI, TMs Normal, Normal ENT Inspection, Pharynx Normal Neck: Full Range of Motion, Normal Inspection, Non Tender, Supple Respiratory: Chest Non Tender, Lungs Clear, Normal Breath Sounds, No Accessory Muscle Use, No Respiratory Distress Cardiovascular: Regular Rate, Rhythm, No Edema, No Gallop, No JVD, No Murmur Gastrointestinal: Normal Bowel Sounds, No Organomegaly, No Pulsatile Mass, Tenderness (Suprapubic tenderness. 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 Skin: Normal Color, Warm/Dry (HOLDEN ROMANO) Progress/Results/Core Measures Suspected Sepsis SIRS Temperature: Pulse: Respiratory Rate: Laboratory Tests 05/22/23 12:03: White Blood Count 6.5 Blood Pressure / Mean: Laboratory Tests 05/22/23 12:03: Creatinine 0.74, INR Comment 0.9, Platelet Count 188, Total Bilirubin 0.7 (HOLDEN ROMANO) Results/Orders Lab Results Laboratory Tests Test 05/22/23 12:03 05/22/23 12:16 05/22/23 12:19 Range/Units White Blood Count 6.5 4.3-11.0 10^3/uL Red Blood Count 4.54 3.80-5.11 10^6/uL Hemoglobin 12.8 11.5-16.0 g/dL Hematocrit 41 35-52 % Mean Corpuscular Volume 91 80-99 fL Mean Corpuscular Hemoglobin 28 25-34 pg Mean Corpuscular Hemoglobin Concent 31 L 32-36 g/dL Red Cell Distribution Width 14.6 H 10.0-14.5 % Platelet Count 188 130-400 10^3/uL Mean Platelet Volume 12.3 H 9.0-12.2 fL Immature Granulocyte % (Auto) 1 % Neutrophils (%) (Auto) 57 42-75 % Lymphocytes (%) (Auto) 37 12-44 % Monocytes (%) (Auto) 4 0-12 % Eosinophils (%) (Auto) 2 0-10 % Basophils (%) (Auto) 0 0-10 % Neutrophils # (Auto) 3.7 1.8-7.8 10^3/uL Lymphocytes # (Auto) 2.4 1.0-4.0 10^3/uL Monocytes # (Auto) 0.3 0.0-1.0 10^3/uL Eosinophils # (Auto) 0.1 0.0-0.3 10^3/uL Basophils # (Auto) 0.0 0.0-0.1 10^3/uL Immature Granulocyte # (Auto) 0.0 0.0-0.1 10^3/uL Prothrombin Time 12.7 12.2-14.7 SEC INR Comment 0.9 0.8-1.4 Activated Partial Thromboplast Time 33 24-35 SEC Sodium Level 140 135-145 MMOL/L Potassium Level 4.2 3.6-5.0 MMOL/L Chloride Level 106 98-107 MMOL/L Carbon Dioxide Level 26 21-32 MMOL/L Anion Gap 8 5-14 MMOL/L Blood Urea Nitrogen 21 H 7-18 MG/DL Creatinine 0.74 0.60-1.30 MG/DL Estimat Glomerular Filtration Rate 117 BUN/Creatinine Ratio 28 Glucose Level 147 H 70-105 MG/DL Calcium Level 9.3 8.5-10.1 MG/DL Corrected Calcium 9.2 8.5-10.1 MG/DL Magnesium Level 2.0 1.6-2.4 MG/DL Total Bilirubin 0.7 0.1-1.0 MG/DL Aspartate Amino Transf (AST/SGOT) 285 H 5-34 U/L Alanine Aminotransferase (ALT/SGPT) 438 H 0-55 U/L Alkaline Phosphatase 122 40-136 U/L Myoglobin 16.8 10.0-92.0 NG/ML Troponin I < 0.028 <0.028 NG/ML Total Protein 7.9 6.4-8.2 GM/DL Albumin 4.1 3.2-4.5 GM/DL Lipase 32 8-78 U/L Urine Test NEGATIVE NEGATIVE Urine Color YELLOW Urine Clarity CLEAR Urine pH 7.0 5-9 Urine Specific [place] 1.010 L 1.016-1.022 Urine Protein NEGATIVE NEGATIVE Urine Glucose (UA) NEGATIVE NEGATIVE Urine Ketones NEGATIVE NEGATIVE Urine Nitrite NEGATIVE NEGATIVE Urine Bilirubin NEGATIVE NEGATIVE Urine Urobilinogen 1.0 < = 1.0 MG/DL Urine Leukocyte Esterase NEGATIVE NEGATIVE Urine RBC (Auto) NEGATIVE NEGATIVE Urine RBC NONE /HPF Urine WBC NONE /HPF Urine Crystals NONE /LPF Urine Bacteria NEGATIVE /HPF Urine Casts NONE /LPF Urine Mucus NEGATIVE /LPF Urine Culture Indicated NO (TRACEY CHEUNG MD) Vital Signs/I&O 05/22/23 11:49 Temp 36.1 Pulse 85 Resp 17 B/P (MAP) 126/74 (91) O2 Delivery Room Air (TRACEY CHEUNG MD) Vital Signs/I&O Capillary Refill : (HOLDEN ROMANO) ECG Comment Sinus rhythm, possible left atrial Moni, 81 bpm, QRS duration 84 MS, QTc 413 MS (HOLDEN ROMANO) Departure Communication (PCP) Reviewed previous ER visits, H&P, lab testing. Patient with multiple complaints. Right-sided head pain with right-sided numbness and weakness since 3 PM yesterday. Patient with substernal chest pain since 3 pm yesterday and lower abdominal pain for two weeks. After reviewing previous visits patient was seen here in October with similar type symptoms of the right sided weakness. Neurology was consulted concerning for atypical migraine and was discharge with no follow up. She states since then she has had no issues or similar symptoms until yesterday. This has stayed the same. NIH was 0. No specific weakness. Normal sensation. Due to the chest pain and right-sided weakness CT scan the head and cardiac work-up was initiated. She reports this lower abdominal pain over the past week. She has suprapubic tenderness. No McBurney tenderness. No right upper quadrant tenderness or right upper quadrant. Negative Rovsing and psoas sign. She had 1 episode of vomiting 1 episode of diarrhea over the past two weeks. No worsening pain with eating. Pain with bowel movements. History of constipation. Not currently taking any laxatives. CBC, CMP, lipase, urinalysis was ordered. She was treated for urinary tract infection with amoxicillin. Urinalysis was negative for or infection. CBC showed normal white blood count, hemoglobin and platelets. CMP grossly unremarkable besides a slight increase of her liver enzymes of AST to 285, ALT 438. No elevated bilirubin. No right upper quadrant tenderness. Nonspecific. No suggesting emergent ultrasound or imaging at this time. Recommend outpatient ultrasound. Did receive a migraine cocktail with near resolution of her headache and right-sided numbness. CT scan of the head was negative for acute abnormality. EKG showed normal sinus rhythm without evidence of ST elevation or depression. Low heart score. Low PERC score. He is not tachycardic or hypoxic. Symptoms continue to improve. Low risk factors for stroke. Likely another episode of her atypical type migraine. Due to improvement of symptoms reassuring lab work patient will be discharged with strict return precautions. Follow-up with your primary care physician for further evaluation. Further evaluation for elevated liver enzymes. Return precaution were discussed such as worsening symptoms (HOLDEN ROMANO) Impression Primary Impression: Right sided numbness Additional Impressions: Chest pain Qualified Codes: R07.9 - Chest pain, unspecified Lower abdominal pain Elevated liver enzymes Disposition: 01 HOME, SELF-CARE Condition: Stable Departure-Patient Inst. Decision time for Depature: 13:40 (HOLDEN ROMANO) Referrals: [facility] [place] (PCP/Family) Primary Care Physician Patient Instructions: Chest Pain, Adult ED Add. Discharge Instructions: Recommend following up with your PCP regarding elevated liver enzymes. If any worsening pain or symptoms return back to ED. ATTENDING PHYSICIAN NOTE: I was physically present as attending physician in the emergency department during the care of this patient, but I was not directly involved in the decision making or delivery of care for this patient. (TRACEY CHEUNG MD) HOLDEN ROMANO May 22, 2023 12:05 TRACEY CHEUNG MD May 23, 2023 08:09
[2023-05-22 12:12] LABS: BASOPHILS % (AUTO) 0 % (0-10); EOSINOPHILS # (AUTO) 0.1 10^3/uL (0.0-0.3); EOSINOPHILS % (AUTO) 2 % (0-10); HEMATOCRIT 41 % (35-52); HEMOGLOBIN 12.8 g/dL (11.5-16.0); LYMPHOCYTES # (AUTO) 2.4 10^3/uL (1.0-4.0); LYMPHOCYTES % (AUTO) 37 % (12-44); MEAN CORPUSCULAR HEMOGLOBIN 28 pg (25-34); MEAN CORPUSCULAR HGB CONC 31 g/dL (32-36); MEAN CORPUSCULAR VOLUME 91 fL (80-99); MEAN PLATELET VOLUME 12.3 fL (9.0-12.2); MONOCYTES # (AUTO) 0.3 10^3/uL (0.0-1.0); MONOCYTES % (AUTO) 4 % (0-12); NEUTROPHILS # (AUTO) 3.7 10^3/uL (1.8-7.8); NEUTROPHILS % (AUTO) 57 % (42-75); PLATELET COUNT 188 10^3/uL (130-400); WHITE BLOOD COUNT 6.5 10^3/uL (4.3-11.0)
[2023-05-22 12:27] LABS: ALBUMIN 4.1 GM/DL (3.2-4.5); CHLORIDE 106 MMOL/L (98-107); POTASSIUM 4.2 MMOL/L (3.6-5.0); SODIUM 140 MMOL/L (135-145)
[2023-05-22 12:29] LABS: CALCIUM 9.3 MG/DL (8.5-10.1)
[2023-05-22 12:30] LABS: GLUCOSE 147 MG/DL (70-105); TOTAL PROTEIN 7.9 GM/DL (6.4-8.2)
[2023-05-22 12:31] LABS: CARBON DIOXIDE 26 MMOL/L (21-32)
[2023-05-22 12:32] LABS: BILIRUBIN,TOTAL 0.7 MG/DL (0.1-1.0)
[2023-05-22 12:33] LABS: ALKALINE PHOSPHATASE 122 U/L (40-136); CREATININE SERUM 0.74 MG/DL (0.60-1.30); GFR ESTIMATED 117
[2023-05-22 12:34] LABS: BUN/CREATININE RATIO 28
[2023-05-22 12:36] LABS: ALANINE AMINOTRANSFERASE 438 U/L (0-55)
[2023-05-22 12:38] LABS: LIPASE 32 U/L (8-78)
[2023-05-22 12:43] LABS: INR 0.9 (0.8-1.4); PROTHROMBIN TIME PATIENT 12.7 SEC (12.2-14.7)
[2023-05-22 13:06] LABS: BILIRUBIN,URINE NEGATIVE (NEGATIVE); CLARITY,URINE CLEAR; COLOR,URINE YELLOW; GLUCOSE, URINE (UA) NEGATIVE (NEGATIVE); KETONES,URINE NEGATIVE (NEGATIVE); LEUKOCYTE ESTERASE ,URINE NEGATIVE (NEGATIVE); NITRITE,URINE NEGATIVE (NEGATIVE); PROTEIN,URINE NEGATIVE (NEGATIVE)
--- NOTE | 2023-05-22 13:22 | Diagnostic Imaging Report ---
INDICATION: Right arm numbness, headache, chest pain, right lower abdominal pain TECHNIQUE: Single view chest 1:01 PM CORRELATION STUDY: 11/07/2022 FINDINGS: The heart size, mediastinal configuration and pulmonary vascularity are within normal limits. The lungs are clear with no consolidating infiltrate. There is no significant effusion or pneumothorax. IMPRESSION: 1. Negative appearing single view chest. Dictated by: Dictated on workstation # [id number]
[2023-05-22 13:23] LABS: BACTERIA,URINE NEGATIVE /HPF
--- NOTE | 2023-05-22 13:45 | Diagnostic Imaging Report ---
PROCEDURE: CT head without contrast. TECHNIQUE: Multiple contiguous axial images were obtained through the brain without the use of intravenous contrast. Auto Exposure Controls were utilized during the CT exam to meet ALARA standards for radiation dose reduction. INDICATION: Weakness, numbness. COMPARISON: Study compared to 11/07/2022. FINDINGS: There is no hemorrhage, hydrocephalus, edema, mass, mass effect, nor evidence for elevated intracranial pressures. The basilar cisterns are patent, and there is no sulcal effacement. Orbits, sinuses, and calvarium are nonacute. IMPRESSION: Stable unremarkable CT head. Dictated by: Dictated on workstation # [id number]
[2023-05-22 13:46] VITALS: BP 124/67
== END 2023-05-22 13:46 | disposition home or self-care (01) ==
LOC: EDUNIT# 11:39 → ER 11:42
DX: R20.0 Anesthesia of skin (principal); R07.2 Precordial pain; R10.30 Lower abdominal pain, unspecified; R74.01 Elevation of levels of liver transaminase levels; R53.1 Weakness; R11.10 Vomiting, unspecified; R19.7 Diarrhea, unspecified; N39.0 Urinary tract infection, site not specified; G43.909 Migraine, unspecified, not intractable, without status migrainosus; Z28.310 Unvaccinated for COVID-19
CPT/HCPCS: 36415; 70450; 71045; 80053; 81000; 83690; 83735; 83874; 84484; 84703; 85025; 85610; 85730; 93005; 93041